=== PATIENT | female | born 1940 | race Two or more races ===

== ENCOUNTER 2024-08-03 08:05 | Inpatient (IN) | payer OTHER ==
[~2024-08-03] VITALS: Ht 170.2 cm; Wt 100.0 kg
[~2024-08-03 08:05] MED LIST: ASPI81CH59 PO; ATOR20TA PO; LOSA-535 PO; POTA-228 PO; TRIA37.586 PO
[2024-08-03] MEDS: ceFAZolin 2 GM/D5W100ml 100 ML IV ONE (10:30)
[2024-08-03] MEDS: TRANEXAMIC ACID 20 ML ONE (11:21)
[2024-08-03] MEDS: ROPIVACAINE 0.5% (5MG/ML) 20ML AMPULE IJ ONE ×2 (11:21→13:13)
[2024-08-03] MEDS ORDERED: oxyCODONE HCL 5MG TAB PO PRN (11:30)
[2024-08-03] MEDS ORDERED: MIDAZOLAM HCL 2MG/2ML 2ml VIAL (1mg/ml) ONE ×2 (11:36→11:37)
[2024-08-03] MEDS ORDERED: fentaNYL CITRATE 100 MCG/2 ML VL ONE (11:36)
[2024-08-03] MEDS ORDERED: PROPOFOL 10 MG/ML 20 ML IV ONE (11:39)
[2024-08-03] MEDS: CEFEPIME 1GM/ 50ML 100 ML IV ONE (11:55)
[2024-08-03] MEDS: VANCOMYCIN HCL 1000 MG VL ONE (13:57)
[2024-08-03] MEDS ORDERED: ONDANSETRON HCL 4 MG/2 ML VIAL IV PRN (14:15)
--- NOTE | 2024-08-03 14:22 | DVHOP2 ---
Operative Report - 2 Report Details Date: 08/03/24 Preop Diagnosis: Right hip degenerative arthritis Postop Diagnosis: Right hip degenerative arthritis Surgeon: Sarah Hallman MD Mover: Milagro WESTON Anesthesiologist: Bridget Anesthesia: Regional Drains: Carola closed wound suction Implant: DonJoy origin stem size 13, 0 neck length, 36 ceramic head, flat polyethylene liner, 50 mm acetabular shell Consent: The patient was informed of the risks and benefits of the procedure. These include but are not limited to complications of anesthesia, postoperative infection, incomplete relief of symptoms, recurrence of symptoms, damage to b lood vessels, nerves and tendons, deep venous thrombosis, pulmonary embolism and possible need for repeat surgery in the future. Complications: None Estimated Blood Loss: 150 cc Fluids: See anesthesia record Findings: Osteophytes particularly at the acetabulum, complete denuded cartilage with eburnated bone, severe tendinosis abductors Indications for Surgery: Right hip degenerative arthritis with severe pain and functional impairment despite nonoperative management Name of Procedure Performed Right total hip arthroplasty Procedure Details Procedure Details: The patient was brought to the operating room and given spinal anesthetic with adequate analgesia obtained. The patient was positioned lateral decubitus with the operative side up, stabilized with hip positioners. Axillary roll applied and lower extremities well-padded. Preop patient received IV Ancef, IV cefepime and IV tranexamic acid. Surgical timeout was performed verifying patient, laterality and procedure. The hip and lower extremity were prepped and draped in sterile fashion. Incision was made over the greater trochanter. Subcutaneous dissection and hemostasis were performed with Bovie and aqua mantis. I identified the fascia which was incised with Bovie and Charnley retractor inserted. I identified the gluteus medius that was split at the junction of its anterior and middle thirds with Bovie then incised off the anterior greater trochanter. I incised the anterior gluteus minimus which was elevated off the capsule. I elevated the reflected head of the rectus. I then performed anterior capsulectomy with Bovie. I extended capsular incision posterior medially and superior laterally. The head was dislocated. Femoral neck cut was made with saw and head removed. Head diameter was calipered on the back table. I adjusted retractors to expose the acetabulum. I sandra underwood removed labral tissue with Bovie. I removed foveal tissue with Bovie, curette and rongeur. I then began reaming sequentially paying attention to inclination and version as I went. I trialed which was stable so acetabular implant was brought into the field and tapped into the acetabulum with good fixation achieved. I then brought up the flat liner which was spun to make sure there was no soft tissue entrapment then tapped in and stability verified. I then brought my attention to the proximal femur. The leg was placed in the sterile bag anteriorly. I cleaned up soft tissue at the greater trochanter shoulder with Bovie. I then used a rongeur to clip the lateral neck. I then used a box osteotome, canal finder and lateralizing rasp. I sequentially broached to size 13. I used a calcar planer to revise femoral neck cut. I trialed with a [0] neck length and [36] head which was stable. Intraoperative AP pelvis x-ray was obtained to verify length, offset and implant size. The hip was dislocated. Neck and head trial removed. I tapped down the stem a bit and again used the calcar planer. Broach was removed. I tapped in the femoral implant with good fixation achieved. I again trialed and decided finally to use the 0 neck length as this was most stable. I cleaned and dried the Ocasio taper and tapped on the femoral head. The hip was again reduced and tested for stability which was good. I irrigated with xperience. I placed 2 grams of vancomycin in the deep and superficial wound. I repaired the minimus and medius to the anterior greater trochanter with #[5] FiberWire in running fashion . I oversewed the repair with 0 Vicryl. I repaired the fascia with #1 Ethibond interrupted [id number]. Deep subcutaneous tissue was closed with 0 Vicryl. Superficial subcutaneous tissue was closed with 2-0 Vicryl. The skin was closed with brad. I then applied the Carola closed wound suction. Patient tolerated the procedure well and was brought to the recovery room in stable condition. Condition Stable Disposition Still a Patient SARAH HALLMAN MD Aug 03, 2024 14:22
[2024-08-03 14:40] VITALS: RESP 12; O2SAT 98
[2024-08-03] MEDS: ONDANSETRON HCL 4 MG/2 ML VIAL ONE (14:55)
--- NOTE | 2024-08-03 14:55 | DVH ---
EXAM: XY PELVIS AP CLINICAL INDICATION: postop TECHNIQUE: XY PELVIS AP Comparison: None FINDINGS/IMPRESSION: Right hip arthroplasty. Surgical skin brad.
[2024-08-03] MEDS ORDERED: ACETAMINOPHEN IV 1000 MG/100ML (10MG/ML) IV PRN (15:00)
[2024-08-03] MEDS ORDERED: HYDROmorphone HCL 2 MG/ML VL/or syr IV PRN (15:00)
[2024-08-03] MEDS: ONDANSETRON HCL 4 MG/2 ML VIAL IV ONE (15:01)
[2024-08-03] MEDS: HYDROCORTISONE SOD SUCC 100 MG/2ML INJ VIAL IV ONE (16:02)
[2024-08-03 17:50] VITALS: O2SAT 97
[2024-08-03] MEDS: SODIUM CHLORIDE 0.9% 1,000 ML IV SCH (18:29)
[2024-08-03] MEDS: KETOROLAC TROMETH 30 MG/ML 1ML VIAL IV SCH (18:32)
[2024-08-03] MEDS: ACETAMINOPHEN 325 MG TAB PO SCH (18:33)
--- NOTE | 2024-08-03 19:06 | DVH ---
CLINICAL INDICATION: postop TECHNIQUE: 2 AP views of the pelvis. XY PELVIS AP Comparison: XY PELVIS AP on DOS: 08/03/24 FINDINGS/IMPRESSION: Right hip arthroplasty in place. No evidence of hardware complication. No acute traumatic fracture or dislocation.
[2024-08-03 19:07] VITALS: BP 128/57; PULSE 83; RESP 16; TEMP 97.3; O2SAT 98
[2024-08-03 20:00] VITALS: PULSE 83; PULSE 88; RESP 20; O2SAT 96
[2024-08-03 21:00] VITALS: BP 127/59; PULSE 88; RESP 20; TEMP 98.8; O2SAT 96
[2024-08-03] MEDS: ceFAZolin 2 GM/D5W50ml 50 ML IV SCH (22:00)
[2024-08-03] MEDS: PREGABALIN 25 MG CAP PO SCH (22:00)
[2024-08-04] VITALS (8 sets, daily range): BP systolic 99–128; BP diastolic 42–59; PULSE 66–91; RESP 16–20; TEMP 97.3–98.8; O2SAT 92–97
[2024-08-04 08:13] LABS: Basophils # (auto) 0 10 ^3/uL (0-0.2); Basophils % (auto) 0.2 % (0.0-2.0); Eosinophils # (auto) 0 10 ^3/uL (0-0.8); Eosinophils % (auto) 0.2 % (0.0-7.0); Hemoglobin 7.6 g/dL (12.2-16.2); Lymphocytes # (auto) 0.6 10 ^3/uL (0.4-5.4); Lymphocytes % (auto) 8.3 % (10.0-50.0); Mean Corpuscular Hgb Conc. 32.5 g/dL (32.0-36.0); Monocytes # (auto) 0.9 10 ^3/uL (0-1.3); Neutrophils # (auto) 5.4 10 ^3/uL (1.6-8.6); Red Cell Distribution Width 15.2 % (11.8-14.3)
[2024-08-04 08:15] LABS: Hematocrit 23.4 % (36.0-46.0); Mean Corpuscular Hemoglobin 27.1 pg (28.0-32.0); Mean Corpuscular Volume 83.4 fL (80.0-100.0); Monocytes % (auto) 12.6 % (0.0-12.0); Neutrophils % (auto) 78.7 % (37.0-80.0); Nucleated Red Blood Cells % 0.1 %; Platelet Count (auto) 279 10^3/uL (140-450); Red Blood Cells 2.81 10^6/uL (4.0-5.20); White Blood Cell 6.9 10^3/uL (4.4-10.8)
[2024-08-04 08:16] LABS: Anion Gap 9 (5-15); Carbon Dioxide 25 mmol/L (20-31); Chloride 106 mmol/L (98-107); Potassium 3.6 mmol/L (3.5-5.1); Sodium 140 mmol/L (136-145)
[2024-08-04 08:17] LABS: Calcium 8.9 mg/dL (8.7-10.4)
[2024-08-04 08:22] LABS: BUN/Creatinine Ratio 21.4 (10.0-20.0); Blood Urea Nitrogen 22 mg/dL (9-23)
[2024-08-04 08:37] LABS: Glucose 112 mg/dL (74-106)
[2024-08-04] MEDS: HYDROCHLOROTHIAZIDE PO SCH (10:00)
[2024-08-04] MEDS: LOSARTAN POTASSIUM 50 MG TAB PO SCH (10:00)
[2024-08-04] MEDS: TRIAMTERENE PO SCH (10:00)
[2024-08-04] MEDS: APIXABAN 2.5 MG TAB PO SCH (10:24)
[2024-08-04] MEDS: POTASSIUM CHL 10 Meq TABLET PO SCH (10:25)
--- NOTE | 2024-08-04 14:07 | DVHPN2 ---
Progress Note - Dictate Date Seen: Aug 04, 2024 Medical Necessity Reason Pt with a Central, PICC or Fol: No Subjective Patient was lying comfortably in bed during my evaluation reports some postoperative hip pain that is somewhat improved with the help of pain medication. Patient reports that she was able to stand up with the help of her walker and physical therapy but was only able to take a few steps next to her bed before needing to sit back down due to the pain. Patient is otherwise feeling well denying any other complaints or concerns during my evaluation. vital signs Vital Sign Date Time Temp Pulse Resp B/P (MAP) Pulse Ox O2 Delivery O2 Flow Rate FiO2 08/04/24 13:00 97.5 83 18 99/59 (72) 93 97.5 08/04/24 08:00 Room Air* 0 21 Total Intake and Output 08/03/24 08/03/24 08/04/24 15:00 23:00 07:00 Intake Total 100 ml 450 ml Balance 100 ml 450 ml medications Current Medications Medications Dose Ordered Sig/Robert Route Start Time Stop Time Status Last Admin Dose Admin Patient Own Medication 1 cap DAILY PO 08/04/24 10:00 Losartan Potassium 100 mg DAILY PO 08/04/24 10:00 Potassium Chloride 10 meq DAILY PO 08/04/24 10:00 08/04/24 10:25 10 MEQ Pregabalin 50 mg BID PO 08/03/24 22:00 08/04/24 10:24 50 MG Apixaban 2.5 mg BID PO 08/04/24 10:00 09/08/24 09:59 08/04/24 10:24 2.5 MG Sodium Chloride 1,000 ml @ 125 mls/hr Q8H IV 08/03/24 11:30 08/04/24 11:30 125 MLS/HR Acetaminophen 650 mg Q6HP PO 08/03/24 18:00 08/04/24 05:13 650 MG Ondansetron HCl 4 mg Q4HP PRN IV 08/03/24 14:15 Oxycodone HCl 5 mg Q4HP PRN PO 08/03/24 11:30 Oxycodone HCl 10 mg Q4HP PRN PO 08/03/24 11:30 objective A&O x4 in no acute distress Hip range of motion grossly limited with pain on movement Carola dressing clean, dry, intact, and maintaining suction No distal edema or calf tenderness to palpation Neurovascularly intact with cap refill less than 2 seconds laboratory and microbiology Laboratory Tests 08/04/24 06:30 Test 08/04/24 06:30 Range/Units Serum Glucose 112 H 74-106 mg/dL Assessment/Plan Continue current management as well as pain control and physical therapy and advised patient to remain weight-bearing as tolerated with the assistance of a walker. Given patient's postoperative hemoglobin level of 7.6 we will keep her another night for further observation and we will obtain new blood work for tomorrow morning for re-evaluation. If hemoglobin is trending upwards may consider patient to be discharged home. Plan discussed with: Patient, Spouse MARIELENA ANTUNEZ Aug 04, 2024 14:06
[2024-08-04] MEDS: oxyCODONE HCL 5MG TAB PO PRN (21:25)
[2024-08-05 01:21] VITALS: BP 131/49; PULSE 94; RESP 17; TEMP 98.8; O2SAT 90
[2024-08-05 05:27] VITALS: BP 112/40; PULSE 100; RESP 17; TEMP 99.4; O2SAT 92
[2024-08-05 08:00] VITALS: PULSE 94; RESP 16; O2SAT 94
[2024-08-05 09:25] LABS: Basophils # (auto) 0 10 ^3/uL (0-0.2); Eosinophils # (auto) 0.1 10 ^3/uL (0-0.8); Lymphocytes # (auto) 0.8 10 ^3/uL (0.4-5.4); White Blood Cell 9.9 10^3/uL (4.4-10.8)
[2024-08-05 09:29] LABS: Basophils % (auto) 0.3 % (0.0-2.0); Eosinophils % (auto) 0.8 % (0.0-7.0); Hematocrit 24.9 % (36.0-46.0); Mean Corpuscular Hgb Conc. 32.1 g/dL (32.0-36.0); Mean Corpuscular Volume 83.9 fL (80.0-100.0); Monocytes % (auto) 9.7 % (0.0-12.0); Neutrophils % (auto) 81.2 % (37.0-80.0); Platelet Count (auto) 307 10^3/uL (140-450); Red Blood Cells 2.96 10^6/uL (4.0-5.20); Red Cell Distribution Width 15.6 % (11.8-14.3)
[2024-08-05 13:00] VITALS: BP 127/60; PULSE 86; RESP 19; TEMP 99; O2SAT 97
--- NOTE | 2024-08-05 13:27 | DVHDS2 ---
Discharge Summary Date of Admission Aug 03, 2024 at 11:28 Date of Discharge: Aug 05, 2024 Labs/Diagnostic Data: Laboratory Results Test 08/05/24 08:55 08/04/24 06:30 White Blood Count 9.9 10^3/uL (4.4-10.8) Red Blood Count 2.96 10^6/uL (4.0-5.20) Hemoglobin 8.0 g/dL (12.2-16.2) Hematocrit 24.9 % (36.0-46.0) Mean Corpuscular Volume 83.9 fL (80.0-100.0) Mean Corpuscular Hemoglobin 27.0 pg (28.0-32.0) Mean Corpuscular Hemoglobin Concent 32.1 g/dL (32.0-36.0) Red Cell Distribution Width 15.6 % (11.8-14.3) Platelet Count 307 10^3/uL (140-450) Mean Platelet Volume 7.3 fL (6.9-10.8) Neutrophils (%) (Auto) 81.2 % (37.0-80.0) Lymphocytes (%) (Auto) 8.0 % (10.0-50.0) Monocytes (%) (Auto) 9.7 % (0.0-12.0) Eosinophils (%) (Auto) 0.8 % (0.0-7.0) Basophils (%) (Auto) 0.3 % (0.0-2.0) Neutrophils # (Auto) 8.0 10 ^3/uL (1.6-8.6) Lymphocytes # (Auto) 0.8 10 ^3/uL (0.4-5.4) Monocytes # (Auto) 1.0 10 ^3/uL (0-1.3) Eosinophils # (Auto) 0.1 10 ^3/uL (0-0.8) Basophils # (Auto) 0 10 ^3/uL (0-0.2) Nucleated Red Blood Cells 0.0 % Sodium Level 140 mmol/L (136-145) Potassium Level 3.6 mmol/L (3.5-5.1) Chloride Level 106 mmol/L (98-107) Carbon Dioxide Level 25 mmol/L (20-31) Anion Gap 9 (5-15) Blood Urea Nitrogen 22 mg/dL (9-23) Creatinine 1.03 mg/dL (0.550-1.02) Glomerular Filtration Rate Calc 54 mL/min (>90) BUN/Creatinine Ratio 21.4 (10.0-20.0) Serum Glucose 112 mg/dL (74-106) Calcium Level 8.9 mg/dL (8.7-10.4) Other Laboratory Tests 08/05/24 08:55 08/04/24 06:30 Brief Hx & Hospital Course: Patient was brought to the hospital on Saturday to undergo a right total hip arthroplasty. She tolerated the procedure well without complications and was kept overnight for postoperative observation. Postop day one patient reported some postoperative hip pain that was being well controlled with the help of pain medication but still limited in her ambulation was only able to take a few steps near bedside with physical therapy. Her hemoglobin was about 7.6 postoperatively and we decided to observe given her hemoglobin started at the low 9s before the procedure and on postop day two improved to eight. Patient expressed her wishes to avoid a rehab facility or [facility] facility at all caused some instead would like to go home. We will plan for the patient to go home after walking with physical therapy. Condition at Discharge: Stable Final Diagnosis/Problems List Right hip degenerative arthritis Discharge Disposition: Home (May go home after physical therapy today) Discharge Instruct/Medications Diet: Regular Activity: See Comment Activity comment: Advised patient to remain weight-bearing as tolerated with the assistance of a walker Follow Up/Referral: I instructed the patient to follow up with our office in 10-14 days for her 1st postoperative evaluation Medications: Rx sent via our outpatient Discharge Statement: "Patient was advised to return to the ER or call 911 if any headaches, dizziness, shortness of breath, chest pain, abdominal pain, bleeding, fevers, or worsening of medical condition. Patient was counseled about treatment plan, medications, possible side effects, patientverbalized understanding. All questions were answered to the best of my ability. This discharge took greater then 30 minutes in planning, reviewing documentation, counseling the patient, and discussing with other team members." ASSESSMENT ASSESSMENT Assessment Right hip degenerative arthritis MARIELENA ANTUNEZ Aug 05, 2024 13:27
--- NOTE | 2024-08-05 13:29 | DVHPN2 ---
Progress Note - Dictate Date Seen: Aug 05, 2024 Medical Necessity Reason Pt with a Central, PICC or Fol: No Subjective Patient was lying comfortably in bed during my evaluation reports some postoperative hip pain that is improved with the help of pain medication. Patient reports that she was able to stand up with the help of her walker and physical therapy and was able to take a few steps right outside of her room before having to go back. Patient is otherwise feeling well denying any other complaints or concerns during my evaluation. vital signs Vital Sign Date Time Temp Pulse Resp B/P (MAP) Pulse Ox O2 Delivery O2 Flow Rate FiO2 08/05/24 10:00 129/48 08/05/24 08:00 94 16 94 Room Air* 0 21 08/05/24 05:27 99.4 99.4 Total Intake and Output 08/04/24 08/04/24 08/05/24 15:00 23:00 07:00 Intake Total 2200 ml 1400 ml Balance 2200 ml 1400 ml medications Current Medications Medications Dose Ordered Sig/Robert Route Start Time Stop Time Status Last Admin Dose Admin Patient Own Medication 1 cap DAILY PO 08/04/24 10:00 Losartan Potassium 100 mg DAILY PO 08/04/24 10:00 Potassium Chloride 10 meq DAILY PO 08/04/24 10:00 08/05/24 10:18 10 MEQ Pregabalin 50 mg BID PO 08/03/24 22:00 08/05/24 10:17 50 MG Apixaban 2.5 mg BID PO 08/04/24 10:00 09/08/24 09:59 08/05/24 10:17 2.5 MG Sodium Chloride 1,000 ml @ 125 mls/hr Q8H IV 08/03/24 11:30 08/05/24 06:32 125 MLS/HR Acetaminophen 650 mg Q6HP PO 08/03/24 18:00 08/05/24 06:31 650 MG Ondansetron HCl 4 mg Q4HP PRN IV 08/03/24 14:15 Oxycodone HCl 5 mg Q4HP PRN PO 08/03/24 11:30 08/05/24 02:11 5 MG Oxycodone HCl 10 mg Q4HP PRN PO 08/03/24 11:30 objective A&O x4 in no acute distress Hip range of motion grossly limited with pain on movement Carola dressing clean, dry, intact, and maintaining suction No distal edema or calf tenderness to palpation Neurovascularly intact with cap refill less than 2 seconds laboratory and microbiology Laboratory Tests 08/05/24 08:55 08/04/24 06:30 Test 08/04/24 06:30 Range/Units Serum Glucose 112 H 74-106 mg/dL Assessment/Plan Patient to be discharged home after physical therapy today as patient declined any rehab facility or care home facility as she has had bad experiences in the past and instead would like to go home as she reports she has family in help at. I advised the patient to remain weight-bearing as tolerated with the assistance of a walker and to maintain her dressings clean, dry, intact, and maintaining suction to call our office if she has any questions or concerns. I also instructed the patient to follow up with our office in 10-14 days for her 1st postoperative evaluation. Rx sent via our outpatient EMR system. She understood and agreed. Plan discussed with: Patient MARIELENA ANTUNEZ Aug 05, 2024 13:29
[2024-08-05 16:31] VITALS: BP 127/60; PULSE 86; RESP 19; TEMP 99; O2SAT 97
[2024-08-05 17:00] VITALS: BP 122/70; PULSE 73; RESP 16; TEMP 98.9; O2SAT 92
== END 2024-08-05 18:01 | disposition home health service (06) | DRG 470 ==
LOC: SUR 08:05 → OVERFLOW 11:28 → TELE 14:43 → TELE-CENTR 17:35
PROVIDERS: ADMIT Orthopaedic Surgery; ATTEND Anesthesiology
PROC: 0SR904Z Replacement of Right Hip Joint with Ceramic on Polyethylene Synthetic Substitute, Open Approach (ICD-10-PCS; principal; 2024-08-03 11:57)
DX: M16.11 Unilateral primary osteoarthritis, right hip (principal); Z79.899 Other long term (current) drug therapy
CPT/HCPCS: 36415; 72170; 80048; 85025; 86850; 86900; 86901; 97116; 97163; 97530; G0378; J1885; J2250; J2405; J2704

== ENCOUNTER 2025-06-03 11:53 | Inpatient (IN) | payer OTHER ==
[~2025-06-03] VITALS: Ht 170.2 cm; Wt 107.3 kg
--- NOTE | 2025-06-03 12:11 | ED.PDOC ---
HPI (NEURO) HPI Comments 84 y/o F, accompanied by son, with PMHx of HTN and HLD presents to the ED for CC of generalized weakness. Son reports, patient has been experiencing symptoms of generalized weakness with associated dizziness, disorientation, and changes in speech following starting a new weight loss supplement x5days ago. Per son, patient stopped taking the supplement x3days ago and symptoms have improved slightly however, he is concerned she may have had a CVA because she is still having difficult finding he words and complaining about feeling "foggy". At this time patient is answering questions appropriately, speech is clear, and no facial droop is noted. No other symptoms or modifying factors are present at this time. She denies any fever, cough, chest pain, falls, weakness, numbness, vision changes, N/V/D, head injury. Chief Complaint: General Weakness Time Seen by MD: 12:00 Reviewed Notes: Nurses Notes, Medications, Allergies Information Source: Patient Mode of Arrival: Wheelchair Severity: Moderate Timing: Days Duration: Since onset Prehospital treatment: None Weakness Location: Generalized Onset: At rest Circumstances: Other (following new Rx) Symptoms: Weakness Modifying factors: Nothing Associated Signs and Symptoms: Weakness Past Medical History PAST MEDICAL HISTORY: High Lipids, HTN Surgical History: Denies all surgeries BOOT MAKER History: Denies all BOOT MAKER Hx Family History Family History: Unknown Social History Smoker: Non-Smoker Alcohol: Denies ETOH Use Drugs: Denies Drug Use Lives In: Home Constitutional: denies: chills, diaphoresis, fatigue, fever, malaise, sweats, weakness, others EENTM: denies: blurred vision, double vision, ear bleeding, ear discharge, ear drainage, ear pain, ear ringing, eye pain, eye redness, hearing loss, mouth pain, mouth swelling, nasal discharge, nose bleeding, nose congestion, nose pain, photophobia, tearing, throat pain, throat swelling, voice changes, others Respiratory: denies: cough, hemoptysis, orthopnea, SOB at rest, shortness of breath, SOB with excertion, stridor, wheezing, others Cardiovascular: denies: chest pain, dizzy spells, diaphoresis, Dyspnea on exertion, edema, irregular heart beat, left arm pain, lightheadedness, palpitations, PND, syncope, others Gastrointestinal: denies: abdomen distended, abdominal pain, blood streaked bowels, constipated, diarrhea, dysphagia, difficulty swallowing, hematemesis, melena, nausea, poor appetite, poor fluid intake, rectal bleeding, rectal pain, vomiting, others Genitourinary: denies: abnormal vagina bleeding, burning, dyspareunia, dysuria, flank pain, frequency, hematuria, incontinence, pain, , vagina discharge, urgency, others Neurological: reports: dizziness, speech problems, others (disorientation); denies: fainting, headache, left sided numbness, left sided weakness, numbness, paresthesia, pre-existing deficit, right sided numbness, right sided weakness, seizure, tingling, tremors, weakness Musculoskeletal: denies: back pain, gout, joint pain, joint swelling, muscle pain, muscle stiffness, neck pain, others Integumetry: denies: bruises, change in color, change in hair/nails, dryness, laceration, lesions, lumps, rash, wounds, others Allergic/Immunocompromised: denies: Difficulty Healing, Frequent Infections, Hives, Itching, others Hematologic/Lymphatic: denies: anemia, blood clots, easy bleeding, easy bruising, swollen glands, others Endocrine: denies: excessive hunger, excessive sweating, excessive thirst, excessive urination, flushing, intolerance to cold, intolerance to heat, unexplained weight gain, unexplained weight loss, others Psychiatric: denies: anxiety, bipolar disorder, depression, hopeless, panic disorder, schizophrenia, sleepless, suicidal, others All Other Systems: Reviewed and Negative Physical Exam General Appearance: No Apparent Distress, Normal HEENT: Normal ENT Inspection, Pharynx Normal Neck: Full Range of Motion, Non-Tender, Normal, Normal Inspection Respiratory: Chest Non-Tender, Lungs Clear, No Accessory Muscle Use, No Respiratory Distress, Normal Breath Sounds Cardiovascular: No Edema, No Murmur, No Gallop, Normal Peripheral Pulses, Regular Rate/Rhythm Breast Exam: Deferred Gastrointestinal: No Organomegaly, Non Tender, No Pulsatile Mass, Normal Bowel Sounds, Soft Genitalia: Deferred Pelvic: Deferred Rectal: Deferred Extremities: No calf tenderness, Normal capillary refill, Normal inspection, Normal range of motion, Non-tender, No pedal edema Musculoskeletal : Apperance: Normal Neurologic: Alert, retail associate manager bilingual II-XII nml as Tested, No Motor Deficits, Normal Affect, Normal Mood, No Sensory Deficits Cerebellar Function: Normal Reflexes: Normal Skin: Dry, Normal Color, Warm Lymphatic: No Adenopathy Was a procedure done? Was a procedure done?: No Differential Diagnosis (SZ) CVA: Hypoglycemia General Weakness: Anemia, CVA, Dehydration, Dysrhythmia, Electrolyte imbalance, Hypoglycemia, Hypotension, Renal failure, TIA X-Ray, Labs, Meds, VS Vital Signs Date Time Temp Pulse Resp B/P (MAP) Pulse Ox O2 Delivery O2 Flow Rate FiO2 06/03/25 11:57 97.6 93 20 136/92 97 97.6 Lab Test 06/03/25 14:59 06/03/25 13:33 Range/Units Troponin I High Sensitivity Pending 7 </=34 ng/L White Blood Count 10.7 4.4-10.8 10^3/uL Red Blood Count 4.81 4.0-5.20 10^6/uL Hemoglobin 15.3 12.2-16.2 g/dL Hematocrit 45.1 36.0-46.0 % Mean Corpuscular Volume 93.9 80.0-100.0 fL Mean Corpuscular Hemoglobin 31.8 28.0-32.0 pg Mean Corpuscular Hemoglobin Concent 33.9 32.0-36.0 g/dL Red Cell Distribution Width 13.2 11.8-14.3 % Platelet Count 264 140-450 10^3/uL Mean Platelet Volume 7.6 6.9-10.8 fL Neutrophils (%) (Auto) 85.0 H 37.0-80.0 % Lymphocytes (%) (Auto) 5.2 L 10.0-50.0 % Monocytes (%) (Auto) 9.1 0.0-12.0 % Eosinophils (%) (Auto) 0.5 0.0-7.0 % Basophils (%) (Auto) 0.2 0.0-2.0 % Neutrophils # (Auto) 9.1 H 1.6-8.6 10 ^3/uL Lymphocytes # (Auto) 0.6 0.4-5.4 10 ^3/uL Monocytes # (Auto) 1.0 0-1.3 10 ^3/uL Eosinophils # (Auto) 0.1 0-0.8 10 ^3/uL Basophils # (Auto) 0 0-0.2 10 ^3/uL Nucleated Red Blood Cells 0.1 % Sodium Level 134 L 136-145 mmol/L Potassium Level 4.4 3.5-5.1 mmol/L Chloride Level 97 L 98-107 mmol/L Carbon Dioxide Level 27 20-31 mmol/L Anion Gap 10 5-15 Blood Urea Nitrogen 19 9-23 mg/dL Creatinine 0.85 0.550-1.02 mg/dL Glomerular Filtration Rate Calc 68 >90 mL/min BUN/Creatinine Ratio 22.4 H 10.0-20.0 Serum Glucose 94 74-106 mg/dL Calcium Level 9.3 8.7-10.4 mg/dL [place] [address] Ph: [phone] DIAGNOSTIC IMAGING Diagnostic Imaging Report : [id number] Signed PATIENT: ZAIRA LORENZO ACCT: [id number] UNIT: [id number] : 1940 LOC: ER ROOM / BED: / AGE / SEX: 84 / F ADM STATUS: REG ER SERVICE 1201 ORDERING PHYSICIAN: EVONNE FLOOD MD PROCEDURE(s): CXRP - CHEST PORTABLE REASON: AMS ORDER NUMBER(s): [id number], ACCESSION NUMBER(s): [id number] EXAM: XY CHEST PORTABLE Indication: AMS Technique: Single frontal view of the chest was obtained Comparison: CT CHEST WO on DOS: 06/29/24, CR CHEST 2 VIEW on DOS: 06/01/24 FINDINGS: Lines and Tubes: None this Lungs: Nodular opacity in the left lower lung measuring 2.4 cm. Pleura: No effusion. No pneumothorax. Cardiomediastinal contours: Unremarkable. Moderate hiatal hernia. At herosclerotic vascular calcifications of the thoracic aorta are noted. Bones: No acute osseous abnormality. IMPRESSION: Nodular opacity in the left lower lung measuring 2.4 cm. Recommend further evaluation with CT chest. Moderate hiatal hernia. ATED BY: NICKY WRIGHT MD DICTATED DATE/TIME: 06/03/25 1300 SIGNED BY: NICKY WRIGHT MD SIGNED DATE/TIME: 06/03/25 1869 CC: [place] [address] Ph: [phone] DIAGNOSTIC IMAGING Diagnostic Imaging Report : [id number] Signed PATIENT: ZAIRA LORENZO ACCT: [id number] UNIT: [id number] : 1940 LOC: ER ROOM / BED: / AGE / SEX: 84 / F ADM STATUS: REG ER SERVICE 1209 ORDERING PHYSICIAN: EVONNE FLOOD MD PROCEDURE(s): HWOCT - HEAD WITHOUT CONTRAST REASON: AMS ORDER NUMBER(s): [id number], ACCESSION NUMBER(s): [id number] EXAM: CT HEAD WITHOUT CONTRAST INDICATION: AMS TECHNIQUE: CT of the head without intravenous contrast. Radiation Dose : 1. Head: CT Dose: CTDI volume is 56.67 mGy. Dose-length product is 1116.74 mGy*cm The dose indicators for CT are the volume Computed Tomography (CT) Dose Index (CTDIvol) and the Dose Length Product (DLP), and are measured in units of mGy and mGy-cm, respectively. These indicators are not patient dose, but values generated from the CT scanner acquisition factors. The report includes radiation exposure data for exposures received during this examination. COMPARISON: None FINDINGS: There is no evidence of acute intracranial hemorrhage, extra-axial collection, mass effect, midline shift, herniation or hydrocephalus. The ventricles, sulci and cisterns are age appropriate. The newell-white differentiation is intact. Patchy periventricular and subcortical white matter hypoattenuation is nonspecific but may be related to small vessel ischemic disease. The visualized paranasal sinuses and mastoid air cells are clear. The surrounding soft tissues and osseous structures are unremarkable. IMPRESSION: No acute intracranial abnormality. Radiation optimization: All CT scans at this facility use at least one of these dose optimization techniques: automated exposure control mA and/or kV adjustment per patient size (includes targeted exams where dose is matched to clinical indication) or iterative reconstruction. ATED BY: PETER RODRIGUEZ MD DICTATED DATE/TIME: 06/03/251243 SIGNED BY: PETER RODRIGUEZ MD SIGNED DATE/TIME: 06/03/251243 CC: X-Ray, Labs, Meds, VS Comment Patient with history of hypertension, hyperlipidemia, presents with altered me ntal status, last known well 5 days ago. Chest x-ray to evaluate for evidence of pneumonia, pneumothorax, CHF EKG and troponin to evaluate for evidence of arrhythmia, ACS, AMI Lab work (CBC, BMP) to evaluate for evidence of severe anemia, electrolyte ab normality including hypokalemia, hyperkalemia, hypernatremia, hyponatremia, hyperglycemia, hypoglycemia, etc. CT head to evaluate for intracranial hemorrhage, large mass, acute infarct, fracture Urinalysis to evaluate for hematuria or infection Re-evaluate Social determinant surveillance affecting care: Social determinants of health that will affect the patient's care: Poor health literacy (additional time provided an explanation) Poor access to outpatient care/followup (provided outpatient resources) Time of 1ST Reevaluation: 12:30 Reevaluation 1ST: Unchanged Patient Education/Counseling: Diagnosis, Treatment Family Education/Counseling: Diagnosis, Treatment Departure 1 Departure Time of Disposition: 15:28 (On reassessment, patient's labs and imaging unremarkable. We will admit to hospital for further stroke evaluation as patient is still having difficulty with some word finding. Patient and son agreeable with plan) Impression: Primary Impression: Word finding difficulty Additional Impression: Generalized weakness Disposition: ADMITTED INPATIENT Admit to: Med Surg Condition: Guarded Critical Care Note Critical Care Time?: No Stability Stability form required: No Heart Score Heart Score: Heart Score Response (Comments) Value History N/A 0 EKG N/A 0 Age N/A 0 Risk Factors N/A 0 Troponin N/A 0 Total 0 I personally scribed for EVONNE FLOOD MD ([email or web address]) on 06/03/25 at 12:11. Electronically submitted by Melany Escalante ([email or web address] I personally scribed for EVONNE FLOOD MD ([email or web address]) on 06/03/25 at 12:19. Electronically submitted by Melany Escalante ([email or web address]). I personally scribed for EVONNE FLOOD MD ([email or web address]) on 06/03/25 at 13:30. Electronically submitted by Melany Escalante ([email or web address]). I personally scribed for EVONNE FLOOD MD ([email or web address]) on 06/03/25 at 13:31. Electronically submitted by Melany Escalante ([email or web address]). EVONNE FLOOD MD Jun 03, 2025 12:11
--- NOTE | 2025-06-03 12:46 | DVH ---
EXAM: CT HEAD WITHOUT CONTRAST INDICATION: AMS TECHNIQUE: CT of the head without intravenous contrast. Radiation Dose : 1. Head: CT Dose: CTDI volume is 56.67 mGy. Dose-length product is 1116.74 mGy*cm The dose indicators for CT are the volume Computed Tomography (CT) Dose Index (CTDIvol) and the Dose Length Product (DLP), and are measured in units of mGy and mGy-cm, respectively. These indicators are not patient dose, but values generated from the CT scanner acquisition factors. The report includes radiation exposure data for exposures received during this examination. COMPARISON: None FINDINGS: There is no evidence of acute intracranial hemorrhage, extra-axial collection, mass effect, midline shift, herniation or hydrocephalus. The ventricles, sulci and cisterns are age appropriate. The newell-white differentiation is intact. Patchy periventricular and subcortical white matter hypoattenuation is nonspecific but may be related to small vessel ischemic disease. The visualized paranasal sinuses and mastoid air cells are clear. The surrounding soft tissues and osseous structures are unremarkable. IMPRESSION: No acute intracranial abnormality. Radiation optimization: All CT scans at this facility use at least one of these dose optimization techniques: automated exposure control mA and/or kV adjustment per patient size (includes targeted exams where dose is matched to clinical indication) or iterative reconstruction.
--- NOTE | 2025-06-03 13:10 | DVH ---
EXAM: XY CHEST PORTABLE Indication: AMS Technique: Single frontal view of the chest was obtained Comparison: CT CHEST WO on DOS: 06/29/24, CR CHEST 2 VIEW on DOS: 06/01/24 FINDINGS: Lines and Tubes: None this Lungs: Nodular opacity in the left lower lung measuring 2.4 cm. Pleura: No effusion. No pneumothorax. Cardiomediastinal contours: Unremarkable. Moderate hiatal hernia. Atherosclerotic vascular calcifications of the thoracic aorta are noted. Bones: No acute osseous abnormality. IMPRESSION: Nodular opacity in the left lower lung measuring 2.4 cm. Recommend further evaluation with CT chest. Moderate hiatal hernia.
[2025-06-03 13:53] LABS: Hematocrit 45.1 % (36.0-46.0); Hemoglobin 15.3 g/dL (12.2-16.2); Mean Corpuscular Hemoglobin 31.8 pg (28.0-32.0); Mean Corpuscular Volume 93.9 fL (80.0-100.0); Nucleated Red Blood Cells % 0.1 %
[2025-06-03 14:06] LABS: Potassium 4.4 mmol/L (3.5-5.1)
[2025-06-03 14:07] LABS: Anion Gap 10 (5-15); Calcium 9.3 mg/dL (8.7-10.4); Carbon Dioxide 27 mmol/L (20-31)
[2025-06-03 14:08] LABS: Chloride 97 mmol/L (98-107); Sodium 134 mmol/L (136-145)
[2025-06-03 14:12] LABS: BUN/Creatinine Ratio 22.4 (10.0-20.0); Blood Urea Nitrogen 19 mg/dL (9-23); Glucose 94 mg/dL (74-106)
[2025-06-03 19:56] VITALS: PULSE 68; RESP 18; O2SAT 96
[2025-06-03] MEDS: ENOXAPARIN SOD 40 MG/0.4 ML SYRINGE SC SCH (21:00)
[2025-06-03] MEDS ORDERED: ONDANSETRON HCL 4 MG/2 ML VIAL IV PRN (21:00)
[2025-06-03] MEDS ORDERED: ACETAMINOPHEN 325 MG TAB PO PRN (21:00)
--- NOTE | 2025-06-03 21:56 | DVH ---
CLINICAL INDICATION: fall TECHNIQUE: 2 radiographic views of the left humerus were obtained. Comparison: None FINDINGS/IMPRESSION: There is no evidence of acute fracture or dislocation. The visualized joint space is well maintained. The alignment is anatomical.
[2025-06-03 22:05] LABS: Urine Protein, UAD Negative (Negative); Urine WBC Clumps PRESENT /hpf (None Seen)
--- NOTE | 2025-06-03 22:06 | DVHHPRES ---
History of Present Illness Resident Creating Document: ALEJANDRA ALTAMIRANO RESIDENT History of Present Illness 84-year-old female with a past medical history of hypertension, hyperlipidemia, tuberculosis at age 1, surgical history of TAVR with pacemaker placement, right total hip arthroplasty has come in with the chief complaints of generalized weakness, forgetfulness, confusion and brain fog for the past 5 days. Patient reports that she started a new weight loss supplement called 'lipomax' 5 days ago, which she ordered online, after which the symptoms began and when she stopped it 2 days ago, her symptoms got better. She elaborates that she would forget what she was talking about mid conversation and would feel disoriented, noticed by her children who urged her to visit the ER believing it was a CVA event. On inquiry, patient denies any dizziness, change in speech/slurring, weakness in 1 side of the body, facial drooping, loss of consciousness, palpitations, chest pain, shortness of breath, nausea, vomiting or GERD symptoms. On admission vitals are stable temp 97.6, HR 68, RR 18, BP 133/98 mmHg, SpO2 96% in room air. Head CT shows no acute intracranial abnormality, chest x-ray shows nodular obesity in the left lower lung, 2.4 cm And moderate hiatal hernia. we are admitting the patient for further workup and management PMH: As stated above PSH: As stated above Family history: Reviewed, noncontributory to the management of this case Social history: Patient denies ever smoking or abusing illicit drugs, drinks 1 glass of wine occasionally allergies: Sulfa drugs, codeine, tetanus shots PCP: Dr. Harry Bowers( new PCP, patient has not visited yet), old PCP was Dr. Orozco code status: Modified code, okay to all measures except shock Review of Systems Constitutional: Yes: Weakness, Other (confusion); No: Fever, Chills, Sweats, Malaise Eyes: No: Pain, Vision change, Conjunctivae inflammation, Eyelid inflammation, Other, Redness ENT: No: Ear pain, Ear discharge, Nose pain, Nose discharge, Nose congestion, Mouth pain, Mouth swelling, Throat pain, Throat swelling, Other Respiratory: No: Cough, Dry, Shortness of breath, SOB with excertion, Wheezing, Hemoptysis, Pleuritic Pain, Sputum, Wheezing, Other Cardiovascular: No: Chest Pain, Palpitations, Orthopnea, Paroxysmal Noc. Dyspnea, Edema, Lt Headedness, Other Gastrointestinal: No: Nausea, Vomiting, Abdominal Pain, Diarrhea, Constipation, Melena, Hematochezia, Other Genitourinary: No Dysuria, No Frequency, No Incontinence, No Hematuria, No Retention, No Other Musculoskeletal: No: other, neck pain, shoulder pain, arm pain, back pain, hand pain, leg pain, foot pain Skin: No: Rash, Lesions, Jaundice, Bruising, Other Neurological: No: Weakness, Numbness, Incoordination, Change in speech, Confusion, Seizures, Other Allergies: Coded Allergies: Sulfa Antibiotics (Unverified Allergy, Mild, rash, 07/31/24) Tetanus Immune Globulin (Unverified Allergy, Mild, rash, 07/31/24) Codeine (Unverified Adverse Reaction, Severe, ALOC, 07/31/24) Medications Current Medications Medications Dose Ordered Sig/Robert Route Start Time Stop Time Status Last Admin Dose Admin Ondansetron HCl 4 mg Q4HP PRN IV 06/03/25 21:00 UNV Acetaminophen 650 mg Q6HP PRN PO 06/03/25 21:00 UNV Enoxaparin Sodium 40 mg DAILY SC 06/03/25 21:00 UNV Atorvastatin Calcium 20 mg DAILY PO 06/04/25 10:00 UNV Patient Own Medication 81 mg DAILY PO 06/04/25 10:00 UNV Patient Own Medication 1 cap DAILY PO 06/04/25 10:00 UNV Patient Own Medication 100 mg DAILY PO 06/04/25 10:00 UNV Exam Vital Signs Vital Signs Date Time Temp Pulse Resp B/P (MAP) Pulse Ox O2 Delivery O2 Flow Rate FiO2 06/03/25 19:56 68 18 96 Room Air* 0 21 06/03/25 19:08 98.3 133/98 (110) 98.3 Exam General Appearance: Alert, Oriented X3, Cooperative, Not in acute distress HEENT: Atraumatic, Mucous membranes moist/pink Respiratory: Clear to auscultation, Normal air movement, No added sounds Cardiovascular: Regular rate, Normal S1, Normal S2, No murmurs Abdominal: Active bowel sounds, Soft, no distention, no tenderness Extremities: No edema, Normal pulses, No tenderness/swelling Skin: No Significant rash, except past surgical scars Neuro: Normal speech, sensorimotor deficits none Psych/Mental Status: Mental status NL, Mood NL Labs/Xrays Labs Test 06/03/25 21:15 06/03/25 17:17 06/03/25 13:33 Range/Units Troponin I High Sensitivity 7 </=34 ng/L White Blood Count 10.7 4.4-10.8 10^3/uL Red Blood Count 4.81 4.0-5.20 10^6/uL Hemoglobin 15.3 12.2-16.2 g/dL Hematocrit 45.1 36.0-46.0 % Mean Corpuscular Volume 93.9 80.0-100.0 fL Mean Corpuscular Hemoglobin 31.8 28.0-32.0 pg Mean Corpuscular Hemoglobin Concent 33.9 32.0-36.0 g/dL Red Cell Distribution Width 13.2 11.8-14.3 % Platelet Count 264 140-450 10^3/uL Mean Platelet Volume 7.6 6.9-10.8 fL Neutrophils (%) (Auto) 85.0 H 37.0-80.0 % Lymphocytes (%) (Auto) 5.2 L 10.0-50.0 % Monocytes (%) (Auto) 9.1 0.0-12.0 % Eosinophils (%) (Auto) 0.5 0.0-7.0 % Basophils (%) (Auto) 0.2 0.0-2.0 % Neutrophils # (Auto) 9.1 H 1.6-8.6 10 ^3/uL Lymphocytes # (Auto) 0.6 0.4-5.4 10 ^3/uL Monocytes # (Auto) 1.0 0-1.3 10 ^3/uL Eosinophils # (Auto) 0.1 0-0.8 10 ^3/uL Basophils # (Auto) 0 0-0.2 10 ^3/uL Nucleated Red Blood Cells 0.1 % Sodium Level 134 L 136-145 mmol/L Potassium Level 4.4 3.5-5.1 mmol/L Chloride Level 97 L 98-107 mmol/L Carbon Dioxide Level 27 20-31 mmol/L Anion Gap 10 5-15 Blood Urea Nitrogen 19 9-23 mg/dL Creatinine 0.85 0.550-1.02 mg/dL Glomerular Filtration Rate Calc 68 >90 mL/min BUN/Creatinine Ratio 22.4 H 10.0-20.0 Serum Glucose 94 74-106 mg/dL Calcium Level 9.3 8.7-10.4 mg/dL SEPSIS Sepsis Screen Date sepsis recognized/suspect: Jun 03, 2025 Time Sepsis recognized/suspect: 1909 Recent Procedure: No On Antibiotic Therapy: No Respiratory Rate >20: No Heart Rate >90: No Temp<36 C (96.8 F) or >38.3 C: No SBP <90 or MAP <65 mmHG: No New Acute Mental Status Change: No Is the patient on CPAP, BIPAP,: No Physician Orders L Humerus Xray (06/03/25 21:20) Admit (06/03/25 20:50) Code Status (06/03/25 20:50) Ondansetron Hcl (Zofran) (06/03/25 21:00) Complete Blood Count (06/04/25 04:00) Comprehensive Metabolic Panel (06/04/25 04:00) Cardiac Diet-2gna,Lofat,Lochol (06/04/25 Breakfast) Echo 2d Mode Cardiac Dop (06/03/25 20:50) Carotid Duplx W Color Dop (06/03/25 20:50) Condition: Unstable (06/03/25 20:50) Acetaminophen Tablet (Tylenol Tablet) (06/03/25 21:00) Lovenox 40mg (06/03/25 21:00) Notify Of Changes From Base (06/03/25 20:50) Unloading Checker For 24 Hours (06/03/25 20:50) Magnesium (06/03/25 20:50) Thyroid Stimulating Hormone (06/03/25 20:50) Drug Screen (06/03/25 20:50) Atorvastatin (Lipitor) (06/04/25 10:00) (Nf) Aspirin (Aspirin Low Dose) (06/04/25 10:00) (Nf) Hydrochlorothiazide W/Triamter (Tri (06/04/25 10:00) (Nf) Losartan Potassium (06/04/25 10:00) Hepatic Panel (06/03/25 20:50) Chest Without Contrast (06/03/25 20:50) Ammonia (06/03/25 20:50) Covid19 Antigen Catherine (06/03/25 ) Rapid Influenza A&B (06/03/25 20:50) Vital Signs Date Time Temp Pulse Resp B/P (MAP) Pulse Ox O2 Delivery O2 Flow Rate FiO2 06/03/25 19:56 68 18 96 Room Air* 0 21 06/03/25 19:08 68 20 96 Room Air 06/03/25 19:08 98.3 68 20 133/98 (110) 96 98.3 06/03/25 15:44 97.2 65 16 164/84 (110) 95 97.2 Laboratory Tests Test 06/03/25 13:33 White Blood Count 10.7 10^3/uL (4.4-10.8) Assessment/Plan Assessment/Plan #Acute metabolic/ toxic encephalopathy #Acute cystitis with hematuria, causing above -Urine shows blood 1+, nitrate 2+, leukocyte esterase 3+, WBC to 89, bacteria many, squamous epithelial cells moderate, RBC 8 -urine culture -IV ceftriaxone 1g IV daily -IV fluid NS 0.9% -Ammonia <10 -UDS negative -Magnesium 1.9 -COVID/flu- negative -TSH 1.54 -Carotid Doppler -Ekg -Echo -CT head shows no acute intracranial abnormalities, patchy periventricular and subcortical white matter hypoattenuation which is nonspecific may relate to small-vessel disease -acetaminophen 650 mg p.o. q.6 PRN #Left lower lung nodule -chest x-ray shows Nodular opacity in the left lower lung measuring 2.4 cm. Recommend further evaluation with CT chest. -chest CT without contrast #Moderate hiatal hernia -as seen in CT scan -Protonix 40 mg per orally daily -outpatient follow up #Hypertensive heart disease with diastolic dysfunction #Hyperlipidemia #S/P TAPVR and pacemaker -continue home medication losartan 100 mg p.o. daily scheduled -continue home medication aspirin 81 mg p.o. daily scheduled -continue home medication atorvastatin 20 mg p.o. daily scheduled -continue medication hydrochlorothiazide one capsule p.o. daily scheduled GI prophylaxis: Protonix 40 mg per orally daily DVT prophylaxis: Lovenox 40 mg subcutaneous daily Diet: cardiac diet Goals of care discussed with the patient for more than 27 minutes: Full code status Case discussed with Dr. Ramachandran, patient Plan discussed with: Patient My Orders Orders - ALEJANDRA ALTAMIRANO RESIDENT Procedure Category Date Status Time Admit ADMIT 06/03/25 Transmitted 20:50 Code Status CODE 06/03/25 Transmitted 20:50 Ondansetron Hcl PHA 06/03/25 Logged (Zofran) 21:00 Complete Blood Count LAB 06/04/25 Verified 04:00 Comprehensive LAB 06/04/25 Verified Metabolic Panel 04:00 Cardiac DIET 06/04/25 Transmitted Diet-2gna,Lofat,Lochol Breakfast Echo 2d Mode Cardiac US 06/03/25 Logged DOP 20:50 Carotid Duplx W Color US 06/03/25 Logged DOP 20:50 Condition: Unstable ZULLY 06/03/25 In Process 20:50 Acetaminophen Tablet PHA 06/03/25 Logged (Tylenol Tablet) 21:00 Lovenox 40mg PHA 06/03/25 Transmitted 21:00 Notify Of Changes ZULLY 06/03/25 In Process From Base 20:50 Unloading Checker For ZULLY 06/03/25 In Process 24 Hours 20:50 Magnesium LAB 06/03/25 In Process 20:50 Thyroid Stimulating LAB 06/03/25 In Process Hormone 20:50 Drug Screen LAB 06/03/25 Logged 20:50 Atorvastatin (Lipitor) PHA 06/04/25 Transmitted 10:00 (Nf) Aspirin (Aspirin PHA 06/04/25 Transmitted Low Dose) 10:00 (NF) PHA 06/04/25 Transmitted Hydrochlorothiazide 10:00 (Nf) Losartan PHA 06/04/25 Transmitted Potassium 10:00 Hepatic Panel LAB 06/03/25 In Process 20:[address] 06/03/25 Logged 20:50 Ammonia LAB 06/03/25 Logged 20:50 Covid19 Antigen Catherine LAB 06/03/25 Logged Rapid Influenza A&B LAB 06/03/25 Logged 20:50 ALEJANDRA ALTAMIRANO RESIDENT Jun 03, 2025 22:06 MELISSA MCINTYRE RESIDENT Jun 04, 2025 04:52
[2025-06-03 22:38] LABS: Alanine Aminotransferase 15.0 U/L (7-40); Albumin 4.4 g/dL (3.2-4.8); Bilirubin, Direct 0.1 mg/dL (<0.3); Bilirubin, Total 0.4 mg/dL (0.2-1.0); Magnesium 1.9 mg/dL (1.6-2.6); Total Protein 7.3 g/dL (5.7-8.2)
[2025-06-03 22:40] LABS: Alkaline Phosphatase 149.0 U/L (46-116)
[2025-06-03 22:43] LABS: Barbiturate Scree,Urine Neg (NEGATIVE); Benzodiazephine Screen, Urine Neg (NEGATIVE); Cocaine Screen, Urine Neg (NEGATIVE); Opiate Scree,Urine Neg (NEGATIVE); Phencyclidine Screen, Urine Neg (NEGATIVE)
[2025-06-03 22:53] LABS: Cannabinoid Screen, Urine Neg (NEGATIVE)
--- NOTE | 2025-06-03 23:04 | DVH ---
EXAM: CT CHEST WITHOUT CONTRAST History: nodular opacity in lung Comparison Study: CT CHEST WO on DOS: 06/29/24, CR CHEST 2 VIEW on DOS: 06/01/24 TECHNIQUE: Multidetector CT of the chest was performed. Imaging was performed without IV contrast. Axial, coronal, and sagittal multiplanar reformats were obtained from the axial data set by the technologist. Radiation Dose : CTDI vol 17.49 mGy, DLP 620.47 mGy*cm. Findings: Evaluation is degraded by respiratory motion. Lungs: Scattered atelectasis/ scarring. Calcified granulomas are seen within the left lower lobe. Pleura: Unremarkable Heart/Great vessels: No cardiomegaly or pericardial effusion. Prior TAVR. Mild atherosclerotic vascular calcification. Mediastinum: Unremarkable. Soft tissues/Bones: Unremarkable Upper abdomen: Probable hepatic cysts, incompletely assessed. Large hiatal hernia. Impression: 1. No acute intrathoracic abnormality. Calcified granulomas account for the opacity demonstrated on recent chest radiograph. 2. Incidental findings as detailed.
[2025-06-03 23:09] LABS: COVID19 ANTIGEN SOFIA FIA NEGATIVE (NEGATIVE)
[2025-06-03 23:42] LABS: Amphetamine Screen, Urine Neg (NEGATIVE)
[2025-06-03 23:44] VITALS: PULSE 85; RESP 17; O2SAT 96
[2025-06-04] VITALS (8 sets, daily range): BP systolic 92–142; BP diastolic 47–77; PULSE 67–88; RESP 14–18; TEMP 97.5–98.5; O2SAT 95–97
--- NOTE | 2025-06-04 00:12 | ECG ---
[facility] Test Date: 2025-06-03 Test Time: 22:53:06 Pat Name: ZAIRA LORENZO Department: ED Room: 0278T B Gender: F Pelota Maker: DIANNE : 1940 Requested By: EVONNE FLOOD Order Number: [id number] Reading MD: Rodolfo Strickland Measurements Intervals [place] Rate: 79 P: 45 IN: 183 QRS: -70 QRSD: 153 T: 91 QT: 414 QTc: 475 Interpretive Statements Atrial-sensed ventricular-paced complexes No further rhythm analysis attempted due to paced rhythm Probable left atrial enlargement Nonspecific IVCD with LAD LVH with secondary repolarization abnormality Inferior infarct, acute (RCA) Anteroseptal infarct, possibly acute Lateral leads are also involved Probable RV involvement, suggest recording right precordial leads Baseline wander in lead(s) V2,V3,V6 Electronically Signed On 06-04-2025 15:47:06 PST by Rodolfo Strickland Please click the below link to view image of tracing.
[2025-06-04] MEDS: PANTOPRAZOLE 40 MG TAB PO SCH (05:47)
[2025-06-04] MEDS: SODIUM CHLORIDE 0.9% 1,000 ML IV ONE (05:47)
[2025-06-04 06:10] LABS: Hematocrit 42.2 % (36.0-46.0); Hemoglobin 14.6 g/dL (12.2-16.2); Mean Corpuscular Hemoglobin 32.3 pg (28.0-32.0); Mean Corpuscular Volume 93.5 fL (80.0-100.0); Nucleated Red Blood Cells % 0.0 %
[2025-06-04 06:34] LABS: Alanine Aminotransferase 12 U/L (7-40); Albumin 3.9 g/dL (3.2-4.8); Anion Gap 10 (5-15); BUN/Creatinine Ratio 19.2 (10.0-20.0); Blood Urea Nitrogen 20 mg/dL (9-23); Calcium 9.0 mg/dL (8.7-10.4); Carbon Dioxide 27 mmol/L (20-31); Chloride 99 mmol/L (98-107); Glucose 86 mg/dL (74-106); Potassium 4.2 mmol/L (3.5-5.1); Sodium 136 mmol/L (136-145); Total Protein 6.5 g/dL (5.7-8.2)
[2025-06-04 06:35] LABS: Bilirubin, Total 0.5 mg/dL (0.2-1.0)
[2025-06-04 06:36] LABS: Alkaline Phosphatase 121 U/L (46-116)
--- NOTE | 2025-06-04 08:38 | DVH ---
Carotid Duplex Date: 06/04/2025 07:15 AM Clinical History: dizziness Comparison: None Technique: Duplex Doppler evaluation of the extracranial carotid and vertebral arteries including color Doppler and spectral/pulsed waveform analysis was performed. Findings: Velocities and ratios within normal limits Bilateral antegrade vertebral artery flow IMPRESSION: No hemodynamically significant stenosis noted in the right carotid system. No hemodynamically significant stenosis noted in the left carotid system. Reference: Radiology 2003; 229:[id number]
[2025-06-04] MEDS: ATORVASTATIN 20 MG TAB PO SCH ×2 (09:52→21:20)
[2025-06-04] MEDS: ASPirin-EC 81 mg tab PO SCH (10:00)
[2025-06-04] MEDS: TRIAMTERENE/HCTZ 37.5/25 MG CAP/TAB PO SCH (10:00)
[2025-06-04] MEDS: LOSARTAN POTASSIUM 50 MG TAB PO SCH (10:00)
[2025-06-04] MEDS: ERGOCALCIFEROL 50,000 UNIT(1.25MG) CAP PO SCH (15:17)
--- NOTE | 2025-06-04 20:37 | DVHPNRES ---
Progress Note Date Seen: Jun 04, 2025 Resident Creating Document: ISAK LORENZO RESIDENT Has the PT tested + for MRSA If YES, has PT been informed?: No Medical Necessity Reason Pt with a Central, PICC or Fol: No Subjective Review of Systems Rosa Child is a 84-year-old female patient, with a past medical history of hypertension, hyperlipidemia, tuberculosis at age 1, surgical history of TAVR with pacemaker placement, right total hip arthroplasty has come in with the chief complaints of generalized weakness, forgetfulness, confusion and brain fog for the past 5 days. Patient reports that she started a new weight loss supplement called 'lipomax' 5 days ago, which she ordered online, after which the symptoms began and when she stopped it 2 days ago, her symptoms got better. She elaborates that she would forget what she was talking about mid conversation and would feel disoriented, noticed by her children who urged her to visit the ER believing it was a CVA event. On inquiry, patient denies any dizziness, change in speech/slurring, weakness in 1 side of the body, facial drooping, loss of consciousness, palpitations, chest pain, shortness of breath, nausea, vomiting or GERD symptoms. On admission vitals are stable temp 97.6, HR 68, RR 18, BP 133/98 mmHg, SpO2 96% in room air. Head CT shows no acute intracranial abnormality, chest x-ray shows nodular obesity in the left lower lung, 2.4 cm And moderate hiatal hernia. we are admitting the patient for further workup and management PMH: As stated above PSH: As stated above Family history: Reviewed, noncontributory to the management of this case Social history: Patient denies ever smoking or abusing illicit drugs, drinks 1 glass of wine occasionally allergies: Sulfa drugs, codeine, tetanus shots PCP: Dr. Harry Bowers( new PCP, patient has not visited yet), old PCP was Dr. Orozco code status: Modified code, okay to all measures except shock. Hospital course: On 06/04/25, the patient was evaluated and examined at bedside. VS, Labs and chart was reviewed. The patient reports feeling better today, but she is feeling confused. The UA showed a UTI that is being treated with IV antibiotic. The patient has a pacemaker, We have request to [employer] to questioning the device. ECHO was performed today and the carotid ultrasounds, the report has not been released yet. We will continue following this patient closely. ROS: Constitutional: Yes: Weakness, Other (confusion); No: Fever, Chills, Sweats, Malaise Eyes: No: Pain, Vision change, Conjunctivae inflammation, Eyelid inflammation, Other, Redness ENT: No: Ear pain, Ear discharge, Nose pain, Nose discharge, Nose congestion, Mouth pain, Mouth swelling, Throat pain, Throat swelling, Other Respiratory: No: Cough, Dry, Shortness of breath, SOB with excertion, Wheezing, Hemoptysis, Pleuritic Pain, Sputum, Wheezing, Other Cardiovascular: No: Chest Pain, Palpitations, Orthopnea, Paroxysmal Noc. Dyspnea, Edema, Lt Headedness, Other Gastrointestinal: No: Nausea, Vomiting, Abdominal Pain, Diarrhea, Constipation, Melena, Hematochezia, Other Genitourinary: No Dysuria, No Frequency, No Incontinence, No Hematuria, No Retention, No Other Musculoskeletal: No: other, neck pain, shoulder pain, arm pain, back pain, hand pain, leg pain, foot pain Skin: No: Rash, Lesions, Jaundice, Bruising, Other Neurological: No: Weakness, Numbness, Incoordination, Change in speech, Confusion, Seizures, Other Allergies: Coded Allergies: Sulfa Antibiotics (Unverified Allergy, Mild, rash, 07/31/24) Tetanus Immune Globulin (Unverified Allergy, Mild, rash, 07/31/24) Codeine (Unverified Adverse Reaction, Severe, ALOC, 07/31/24) Objective vital signs Vital Sign Date Time Temp Pulse Resp B/P (MAP) Pulse Ox O2 Delivery O2 Flow Rate FiO2 06/04/25 16:50 97.5 67 16 110/77 (88) 96 97.5 06/04/25 08:00 Room Air* 0 21 Total Intake and Output 06/03/25 06/03/25 06/04/25 15:00 23:00 07:00 Intake Total 0 ml Balance 0 ml medications Current Medications Medications Dose Ordered Sig/Robert Route Start Time Stop Time Status Last Admin Dose Admin Ondansetron HCl 4 mg Q4HP PRN IV 06/03/25 21:00 Acetaminophen 650 mg Q6HP PRN PO 06/03/25 21:00 Enoxaparin Sodium 40 mg DAILY SC 06/03/25 21:00 Aspirin 81 mg DAILY PO 06/04/25 10:00 06/04/25 10:00 81 MG Triamterene/HCTZ 1 cap DAILY PO 06/04/25 10:00 Pantoprazole Sodium 40 mg DAILY@0600 PO 06/04/25 06:00 06/04/25 05:47 40 MG Ceftriaxone Sodium 50 ml @ 100 mls/hr DAILY@ IV 06/04/25 09:00 UNV Ceftriaxone Sodium 50 ml @ 100 mls/hr DAILY@ IV 06/05/25 09:00 Metoprolol Tartrate 25 mg BID PO 06/04/25 22:00 Ergocalciferol 50,000 unit Q7D PO 06/04/25 12:00 06/04/25 15:17 50,000 UNIT Atorvastatin Calcium 20 mg HS PO 06/04/25 22:00 Examination General Appearance: Alert, not in acute distress. Cooperative, Not in acute distress HEENT: Atraumatic, Mucous membranes moist/pink Respiratory: Clear to auscultation, Normal air movement, No added sounds Cardiovascular: Regular rate, Normal S1, Normal S2, No murmurs Abdominal: Active bowel sounds, Soft, no distention, no tenderness Extremities: No edema, Normal pulses, No tenderness/swelling Skin: No Significant rash, except past surgical scars Neuro: Normal speech, sensorimotor deficits none Psych/Mental Status: Oriented X3, but confused in some details of her medical hi story. laboratory and microbiology Laboratory Tests 06/04/25 05:27 Test 06/04/25 05:27 Range/Units Serum Glucose 86 74-106 mg/dL Problem List/Assessment/Plan Problem List/Assessment/Plan #Acute metabolic/ toxic encephalopathy possible due to acute UTI #Acute UTI, possible due to cystitis with hematuria -Urine shows blood 1+, nitrate 2+, leukocyte esterase 3+, WBC to 89, bacteria many, squamous epithelial cells moderate, RBC 8 -urine culture -IV ceftriaxone 1g IV daily -IV fluid NS 0.9% -Ammonia <10 -UDS negative -Magnesium 1.9 -COVID/flu- negative -TSH 1.54 -Carotid Doppler -Ekg -Echo -CT head shows no acute intracranial abnormalities, patchy periventricular and subcortical white matter hypoattenuation which is nonspecific may relate to small-vessel disease -acetaminophen 650 mg p.o. q.6 PRN #Hx of TAVR The patient has a pacemaker Device interrogation requested ECHO US doppler: Carotids. #Left lower lung nodule #History of TB as a child. -chest x-ray shows Nodular opacity in the left lower lung measuring 2.4 cm. Recommend further evaluation with CT chest. -chest CT without contrast as out patient. 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 daily scheduled -continue home medication aspirin 81 mg p.o. daily scheduled -continue home medication atorvastatin 20 mg p.o. daily scheduled -continue medication hydrochlorothiazide one capsule p.o. daily scheduled GI prophylaxis: Protonix 40 mg per orally daily DVT prophylaxis: Lovenox 40 mg subcutaneous daily Diet: cardiac diet PCP: Dr. Harry Bowers( new PCP, patient has not visited yet), old PCP was Dr. Orozco code status: Modified code, okay to all measures except shock. Goals of care discussed with the patient for more than 30 minutes Case discussed with Dr. Ramachandran, patient. Plan discussed with: Patient, Son My Orders My Orders Orders - ISAK LORENZO Procedure Category Date Status Time Code Status CODE 06/04/25 Transmitted 07:32 Modified Resuscitive CODE 06/04/25 Transmitted Measures Metoprolol Tartrate PHA 06/04/25 In Process Tablet (Lopressor Ta 22:00 Radiologic Technology Teacher To Assess ORDERS 06/04/25 Transmitted Pacemaker 11:53 Atorvastatin (Lipitor) PHA 06/04/25 In Process 22:00 Complete Blood Count LAB 06/05/25 Verified 04:00 Basic Metabolic Panel LAB 06/05/25 Verified 04:00 Date of Service: Jun 04, 2025 Billing Provider: NARCISO RAMACHANDRAN MD Common Visit Codes: 83816-[id number] INP/OBS CARE(HIGH) ISAK LORENZO RESIDENT Jun 04, 2025 20:37
[2025-06-04] MEDS: METOPROLOL TARTRATE 25 MG TAB PO SCH (22:00)
[2025-06-04] MEDS: LOSARTAN POTASSIUM 50 MG TAB PO ONE (23:03)
[2025-06-05 01:00] VITALS: BP 144/70; PULSE 71; RESP 16; TEMP 97.8; O2SAT 94
[2025-06-05 05:00] VITALS: BP 147/74; PULSE 71; RESP 16; TEMP 97.4; O2SAT 94
[2025-06-05] MEDS: CYANOCOBALAMIN (B-12) 1000 MCG/1 ML VIAL IM ONE (07:15)
[2025-06-05 07:47] LABS: Hematocrit 38.8 % (36.0-46.0); Hemoglobin 13.6 g/dL (12.2-16.2); Mean Corpuscular Hemoglobin 32.4 pg (28.0-32.0); Mean Corpuscular Volume 92.7 fL (80.0-100.0); Nucleated Red Blood Cells % 0.0 %
[2025-06-05 07:52] LABS: Anion Gap 10 (5-15); Calcium 8.8 mg/dL (8.7-10.4); Carbon Dioxide 24 mmol/L (20-31); Potassium 3.8 mmol/L (3.5-5.1)
[2025-06-05 07:58] LABS: BUN/Creatinine Ratio 21.5 (10.0-20.0); Blood Urea Nitrogen 17 mg/dL (9-23); Glucose 89 mg/dL (74-106)
[2025-06-05 07:59] LABS: Chloride 97 mmol/L (98-107); Sodium 131 mmol/L (136-145)
[2025-06-05 08:00] VITALS: PULSE 69; PULSE 70; RESP 18; O2SAT 95
[2025-06-05 09:00] VITALS: BP 120/78; PULSE 77; RESP 16; TEMP 97.9; O2SAT 95
[2025-06-05] MEDS: LOSARTAN POTASSIUM 50 MG TAB PO SCH (10:00)
[2025-06-05 12:44] VITALS: BP 136/75; PULSE 64; RESP 16; TEMP 97.6; O2SAT 95
[2025-06-05] MEDS ORDERED: CYAN100056 PO (13:38)
[2025-06-05] MEDS ORDERED: CIPR500T4 PO (13:38)
[2025-06-05] MEDS ORDERED: ERGO1CAP23 PO (13:38)
--- NOTE | 2025-06-05 13:38 | DVHDSRES ---
Discharge Summary Date of Admission Resident Creating Document: STEPHON THRASHER RESIDENT Jun 03, 2025 at 20:50 Date of Discharge: Jun 05, 2025 Admitting Diagnosis Brain fog Wounds: No open wound was present Labs/Diagnostic Data: Laboratory Results Test 06/05/25 06:09 06/04/25 05:27 06/04/25 05:24 06/03/25 22:33 White Blood Count 8.1 10^3/uL (4.4-10.8) Red Blood Count 4.19 10^6/uL (4.0-5.20) Hemoglobin 13.6 g/dL (12.2-16.2) Hematocrit 38.8 % (36.0-46.0) Mean Corpuscular Volume 92.7 fL (80.0-100.0) Mean Corpuscular Hemoglobin 32.4 pg (28.0-32.0) Mean Corpuscular Hemoglobin Concent 34.9 g/dL (32.0-36.0) Red Cell Distribution Width 13.3 % (11.8-14.3) Platelet Count 215 10^3/uL (140-450) Mean Platelet Volume 8.2 fL (6.9-10.8) Neutrophils (%) (Auto) 79.9 % (37.0-80.0) Lymphocytes (%) (Auto) 9.0 % (10.0-50.0) Monocytes (%) (Auto) 8.9 % (0.0-12.0) Eosinophils (%) (Auto) 1.7 % (0.0-7.0) Basophils (%) (Auto) 0.5 % (0.0-2.0) Neutrophils # (Auto) 6.5 10 ^3/uL (1.6-8.6) Lymphocytes # (Auto) 0.7 10 ^3/uL (0.4-5.4) Monocytes # (Auto) 0.7 10 ^3/uL (0-1.3) Eosinophils # (Auto) 0.1 10 ^3/uL (0-0.8) Basophils # (Auto) 0 10 ^3/uL (0-0.2) Nucleated Red Blood Cells 0.0 % Sodium Level 131 mmol/L (136-145) Potassium Level 3.8 mmol/L (3.5-5.1) Chloride Level 97 mmol/L (98-107) Carbon Dioxide Level 24 mmol/L (20-31) Anion Gap 10 (5-15) Blood Urea Nitrogen 17 mg/dL (9-23) Creatinine 0.79 mg/dL (0.550-1.02) Glomerular Filtration Rate Calc 74 mL/min (>90) BUN/Creatinine Ratio 21.5 (10.0-20.0) Serum Glucose 89 mg/dL (74-106) Calcium Level 8.8 mg/dL (8.7-10.4) Total Bilirubin 0.5 mg/dL (0.2-1.0) Aspartate Amino Transferase (AST) 15 U/L (13-40) Alanine Aminotransferase (ALT) 12 U/L (7-40) Alkaline Phosphatase 121 U/L (46-116) Total Protein 6.5 g/dL (5.7-8.2) Albumin 3.9 g/dL (3.2-4.8) Vitamin B12 Level 185 pg/mL (211-911) Vitamin D 25-Hydroxy 27.2 ng/mL (30.0-100) Ammonia < 10 umol/L (11-32) Test 06/03/25 22:19 06/03/25 21:15 06/03/25 17:17 Influenza Type A Antigen Negative (Negative) Influenza Type B Antigen Negative (Negative) SARS-CoV-2 Antigen (Rapid) Negative (NEGATIVE) Urine Color Colorless (Yellow) Urine Clarity Turbid (Clear) Urine pH 6.0 (5.0-9.0) Urine Specific [place] 1.018 (1.001-1.035) Urine Protein Negative (Negative) Urine Ketones Negative (Negative) Urine Blood 1+ /uL (Negative) Urine Nitrite 2+ (Negative) Urine Bilirubin Negative (Negative) Urine Urobilinogen Normal mg/dL (Negative) Urine Leukocyte Esterase 3+ /uL (Negative) Urine RBC 8 /hpf (0 - 4) Urine WBC Clumps Present /hpf (None Seen) Urine Microscopic WBC 289 /HPF (0-5) Urine Squamous Epithelial Cells Mod /hpf (<5) Urine Bacteria Many /hpf (None Seen) Urine Glucose Normal mg/dL (Normal) Urine Opiates Screen Neg (NEGATIVE) Urine Fentanyl Screen Neg (NEGATIVE) Urine Barbiturates Screen Neg (NEGATIVE) Urine Phencyclidine Screen Neg (NEGATIVE) Urine Amphetamines Screen Neg (NEGATIVE) Urine Benzodiazepines Screen Neg (NEGATIVE) Urine Cocaine Screen Neg (NEGATIVE) Urine Cannabinoids Screen Neg (NEGATIVE) Magnesium Level 1.9 mg/dL (1.6-2.6) Direct Bilirubin 0.1 mg/dL (<0.3) Troponin I High Sensitivity 7 ng/L (</=34) Thyroid Stimulating Hormone (TSH) 1.54 uIU/mL (0.55-4.78) Other Laboratory Tests 06/05/25 06:09 Brief Hx & Hospital Course: Rosa Child is a 84-year-old female patient, with a past medical history of hypertension, hyperlipidemia, tuberculosis at age 1, surgical history of TAVR with pacemaker placement, right total hip arthroplasty has come in with the chief complaints of generalized weakness, forgetfulness, confusion and brain fog for the past 5 days. Patient reports that she started a new weight loss supplement called 'lipomax' 5 days ago, which she ordered online, after which the symptoms began and when she stopped it 2 days ago, her symptoms got better. She elaborates that she would forget what she was talking about mid conversation and would feel disoriented, noticed by her children who urged her to visit the ER believing it was a CVA event. On inquiry, patient denies any dizziness, change in speech/slurring, weakness in 1 side of the body, facial drooping, loss of consciousness, palpitations, chest pain, shortness of breath, nausea, vomiting or GERD symptoms. Hospital course: Patient was initially admitted for acute metabolic/ toxic encephalopathy, CT head without contrast showed no acute intracranial abnormality, patchy periventricular and subcortical white matter hypoattenuation which is nonspecific may relate to small vessel disease. Carotid doppler showed no hemodynamically significant stenosis in right and left carotid system. U/A was consistent with UTI, preliminary urine culture demonstrated Gram-negative rods. Patient was treated with IV ceftriaxone 1 g daily. Incidental finding of calcified granuloma in the CT chest which patient needs to follow up outpatient with PCP. Echo was done and needs to follow up with the echo report in DC clinic on next Saturday. pacemaker interrogation was done in the hospital. Cardiology was consulted for suspected arrhythmia, reviewed the patient and cleared for discharge. Discharge plan was discussed with the patient and all questions were answered. Patient is being discharged to home with ciprofloxacin 500 mg p.o. b.i.d, ergocalciferol 54040 units weekly and cyanocobalamin 1000 mcg p.o. daily, advised to continue home medications and follow up with a DC clinic on next Saturday with Dr. Garza/Dr. Phillip. Physical examination on the day of discharge: General Appearance: Alert, Oriented X3, Cooperative, No acute distress HEENT: Atraumatic, PERRLA, EOMI, Mucous membrane moist/pink Respiratory: Clear to auscultation, Normal air movement Cardiovascular: Regular rate, Normal S1, Normal S2, No murmurs, no chest wall tenderness Abdominal: Normal bowel sounds, Soft, No tenderness, No hepatosplenomegaly, No masses Extremities: No clubbing, No cyanosis, No edema, Normal pulses, No tenderness/swelling Skin: No rashes, No breakdown, No significant lesion Neuro: Use walker, Normal speech, Strength at 5/5 X4 ext, Normal tone, Sensation intact, Cranial nerves 3-12 NL, Reflexes 2+ Psych/Mental Status: Mental status NL, Mood NL Goals of care discussed with the patient for 20 minutes; modified full code; to do everything except electric shock Discussed with Dr. Garza Consults/Reason for consult Cardiology was consulted for suspected arrhythmias on the telemetry Operations or Procedures EXAM: XY CHEST PORTABLE Indication: AMS FINDINGS: Lines and Tubes: None this Lungs: Nodular opacity in the left lower lung measuring 2.4 cm. Pleura: No effusion. No pneumothorax. Cardiomediastinal contours: Unremarkable. Moderate hiatal hernia. Atherosclerotic vascular calcifications of the thoracic aorta are noted. Bones: No acute osseous abnormality. IMPRESSION: Nodular opacity in the left lower lung measuring 2.4 cm. Recommend further evaluation with CT chest. Moderate hiatal hernia. EXAM: CT HEAD WITHOUT CONTRAST INDICATION: AMS TECHNIQUE: CT of the head without intravenous contrast. FINDINGS: There is no evidence of acute intracranial hemorrhage, extra-axial collection, mass effect, midline shift, herniation or hydrocephalus. The ventricles, sulci and cisterns are age appropriate. The newell-white differentiation is intact. Patchy periventricular and subcortical white matter hypoattenuation is nonspecific but may be related to small vessel ischemic disease. The visualized paranasal sinuses and mastoid air cells are clear. The surrounding soft tissues and osseous structures are unremarkable. IMPRESSION: No acute intracranial abnormality. EXAM: CT CHEST WITHOUT CONTRAST Findings: Evaluation is degraded by respiratory motion. Lungs: Scattered atelectasis/ scarring. Calcified granulomas are seen within the left lower lobe. Pleura: Unremarkable Heart/Great vessels: No cardiomegaly or pericardial effusion. Prior TAVR. Mild atherosclerotic vascular calcification. Mediastinum: Unremarkable. Soft tissues/Bones: Unremarkable Upper abdomen: Probable hepatic cysts, incompletely assessed. Large hiatal hernia. Impression: 1. No acute intrathoracic abnormality. Calcified granulomas account for the opacity demonstrated on recent chest radiograph. 2. Incidental findings as detailed. Carotid Duplex Findings: Velocities and ratios within normal limits Bilateral antegrade vertebral artery flow IMPRESSION: No hemodynamically significant stenosis noted in the right carotid system. No hemodynamically significant stenosis noted in the left carotid system. Condition at Discharge: Stable Final Diagnosis/Problems List # Acute metabolic encephalopathy likely due to UTI; resolved # Acute complicated UTI; acute cystitis without hematuria # Left lower lung nodule; to follow up as outpatient # Hiatal hernia # Hypertensive heart disease with possible diastolic/systolic failure # Hyperlipidemia # S/P TAPVR and pacemaker # Arrhythmias ruled out as per cardiology Discharge Disposition: Home Discharge Instruct/Medications Diet: Cardiac 2g Na,low cholest Activity: No Restrictions, As Tolerated Follow Up/Referral: Follow up with D/C clinic in 1 week; to follow up with the primary care provider within two weeks; to follow up with primary Cardiology within two weeks Medications: Ciprofloxacin 500 mg p.o. b.i.d. for 7 days Scheduled Aspirin (Aspirin Low Dose), 81 MG PO DAILY, (Reported) Atorvastatin Calcium (Lipitor), 20 MG PO DAILY, (Reported) Ciprofloxacin Hcl (Ciprofloxacin Hcl), 1 TAB PO BID Cyanocobalamin (B-12), 1,000 MCG PO DAILY Ergocalciferol (Vitamin D 55203 Unit), 50,000 UNIT PO weekly Hydrochlorothiazide W/Triamter (Triamterene/Hydrochloroth), 1 CAP PO DAILY, (Reported) Losartan Potassium (Losartan Potassium), 100 MG PO DAILY, (Reported) Discontinued Medications Potassium Chloride (Potassium Chloride ER), 10 MEQ PO DAILY, (Reported) Discharge Statement: "Patient was advised to return to the ER or call 911 if any headaches, dizziness, shortness of breath, chest pain, abdominal pain, bleeding, fevers, or worsening of medical condition. Patient was counseled about treatment plan, medications, possible side effects, patientverbalized understanding. All questions were answered to the best of my ability. This discharge took greater then 30 minutes in planning, reviewing documentation, counseling the patient, and discussing with other team members." ASSESSMENT ASSESSMENT Assessment Date of Service: Jun 05, 2025 Billing Provider: VARGHESE GARZA MD Common Visit Codes: 67990-ENJ/OBS DISCH DAY >30min Secondary Visit Codes: 77016-[id number] CARE PLAN 30 MINUTES (20 minutes) STEPHON THRASHER RESIDENT Jun 05, 2025 13:38 VARGHESE GARZA MD Jun 08, 2025 07:28
--- NOTE | 2025-06-05 14:01 | DVHINCON2 ---
Date Seen: Jun 05, 2025 Referring Physician Quoc Reason for Consultation Suspected NSVT History of Present Illness 84-year-old female with PMH for HTN, HLD, TAVR, SSS s/p ppm, right hip arthroplasty presents to the hospital with generalized weakness forgetfulness confusion brain followed. Patient was initially rule out stroke for which CT head was unremarkable, carotid Doppler negative for significant stenosis. While on telemetry patient had episode of suspected in his VT/arrhythmia, cardiology consulted. Past Medical History As stated above Past Surgical History TAVR, ppm implantation. Family History: FHx: heart failure G8 MOTHER G8 FATHER Hypertension G8 MOTHER G8 FATHER No Family History of: Arthritis Allergies: Coded Allergies: Sulfa Antibiotics (Unverified Allergy, Mild, rash, 07/31/24) Tetanus Immune Globulin (Unverified Allergy, Mild, rash, 07/31/24) Codeine (Unverified Adverse Reaction, Severe, ALOC, 07/31/24) Home Meds Active Scripts Cyanocobalamin (B-12) 1,000 Mcg Cap, 1000 MCG PO DAILY for 30 Days, #30 CAP Prov:STEPHON THRASHER RESIDENT 06/05/25 Ergocalciferol (VITAMIN D 84933 UNIT) 50,000 [place], [address] UNIT PO weekly for 10 Days, #10 CAP Prov:STEPHON THRASHER RESIDENT 06/05/25 Ciprofloxacin Hcl (Ciprofloxacin Hcl) 500 Mg Tab, 1 TAB PO BID for 7 Days, #14 TAB Prov:STEPHON THRASHER RESIDENT 06/05/25 Reported Medications Aspirin (Aspirin Low Dose) 81 Mg Chw, 81 MG PO DAILY, TAB.CHEW 07/31/24 Atorvastatin Calcium (Lipitor) 20 Mg Tab, 20 MG PO DAILY, TAB 07/31/24 Losartan Potassium (Losartan Potassium) 100 Mg Tab, 100 MG PO DAILY, TAB 07/31/24 Potassium Chloride (Potassium Chloride ER) 10 Meq Tab, 10 MEQ PO DAILY, TAB 07/31/24 Hydrochlorothiazide W/Triamter (Triamterene/Hydrochloroth) 1 Cap Cap, 1 CAP PO DAILY, CAP 07/31/24 Current Medications Current Medications Medications (Trade) Dose Ordered Sig/Robert Route PRN Reason Start Time Stop Time Status Last Admin Ceftriaxone Sodium 50 ml @ 100 mls/hr DAILY@09 IV 06/05/25 09:00 06/05/25 10:51 Metoprolol Tartrate (Lopressor Tablet) 25 mg BID PO 06/04/25 22:00 06/04/25 22:54 DC Atorvastatin Calcium (Lipitor) 20 mg HS PO 06/04/25 22:00 06/04/25 21:20 Losartan Potassium (Cozaar Tablet) 100 mg DAILY PO 06/05/25 10:00 06/05/25 10:00 Cyanocobalamin (Vitamin B-12) 500 mcg DAILY PO 06/06/25 10:00 Review of Systems Constitutional: No: Fever, Chills, Sweats, Weakness, Malaise, Other Eyes: No: Pain, Vision change, Conjunctivae inflammation, Eyelid inflammation, Other, Redness ENT: No: Ear pain, Ear discharge, Nose pain, Nose discharge, Nose congestion, Mouth pain, Mouth swelling, Throat pain, Throat swelling, Other Respiratory: No: Cough, Dry, Shortness of breath, SOB with exertion, Wheezing, Hemoptysis, Pleuritic Pain, Sputum, Wheezing, Other Cardiovascular: ; No: Chest Pain Palpitations, Orthopnea, Paroxysmal Noc. Dyspnea, Edema, Lt Headedness, Other Gastrointestinal: No: Nausea, Vomiting, Abdominal Pain, Diarrhea, Constipation, Melena, Hematochezia, Other Genitourinary: No Dysuria, No Frequency, No Incontinence, No Hematuria, No Retention, No Other Musculoskeletal: neck pain; No: other, shoulder pain, arm pain, back pain, hand pain, leg pain, foot pain Skin: No: Rash, Lesions, Jaundice, Bruising, Other Neurological: Other (Dizziness, headache.); No: Weakness, Numbness, Incoordination, Change in speech, Confusion, Seizures Vital Signs Vital Signs Date Time Temp Pulse Resp B/P (MAP) Pulse Ox O2 Delivery O2 Flow Rate FiO2 06/05/25 12:44 97.6 64 16 136/75 (95) 95 97.6 06/05/25 08:00 Room Air* 0 21 Physical Exam General appearance: Patient is well-developed, well-nourished, in no acute distress. HEENT: Exam shows: Normocephalic, atraumatic, PERRLA, EOMI Neck: Supple, no bruits Chest: Equal chest excursion bilaterally. Breath sounds normal-no rales or wheezes. Heart: Rhythm: Regular rate; AV paced no murmur or gallop Abdomen: Exam shows: Soft, nontender, nondistended Musculoskeletal: No clubbing, no cyanosis, no lower extremity edema Dermatology: Skin warm, moist. Neurological: Exam shows: Alert and oriented x4, normal speech Available prior records, labs, EKG, rhythm strips reviewed and interpreted Labs/Diagnostic Data Labs Test 06/05/25 06:09 06/04/25 05:27 06/04/25 05:24 06/03/25 22:33 Range/Units White Blood Count 8.1 4.4-10.8 10^3/uL Red Blood Count 4.19 4.0-5.20 10^6/uL Hemoglobin 13.6 12.2-16.2 g/dL Hematocrit 38.8 36.0-46.0 % Mean Corpuscular Volume 92.7 80.0-100.0 fL Mean Corpuscular Hemoglobin 32.4 H 28.0-32.0 pg Mean Corpuscular Hemoglobin Concent 34.9 32.0-36.0 g/dL Red Cell Distribution Width 13.3 11.8-14.3 % Platelet Count 215 140-450 10^3/uL Mean Platelet Volume 8.2 6.9-10.8 fL Neutrophils (%) (Auto) 79.9 37.0-80.0 % Lymphocytes (%) (Auto) 9.0 L 10.0-50.0 % Monocytes (%) (Auto) 8.9 0.0-12.0 % Eosinophils (%) (Auto) 1.7 0.0-7.0 % Basophils (%) (Auto) 0.5 0.0-2.0 % Neutrophils # (Auto) 6.5 1.6-8.6 10 ^3/uL Lymphocytes # (Auto) 0.7 0.4-5.4 10 ^3/uL Monocytes # (Auto) 0.7 0-1.3 10 ^3/uL Eosinophils # (Auto) 0.1 0-0.8 10 ^3/uL Basophils # (Auto) 0 0-0.2 10 ^3/uL Nucleated Red Blood Cells 0.0 % Sodium Level 131 #L 136-145 mmol/L Potassium Level 3.8 3.5-5.1 mmol/L Chloride Level 97 L 98-107 mmol/L Carbon Dioxide Level 24 20-31 mmol/L Anion Gap 10 5-15 Blood Urea Nitrogen 17 9-23 mg/dL Creatinine 0.79 0.550-1.02 mg/dL Glomerular Filtration Rate Calc 74 >90 mL/min BUN/Creatinine Ratio 21.5 H 10.0-20.0 Serum Glucose 89 74-106 mg/dL Calcium Level 8.8 8.7-10.4 mg/dL Total Bilirubin 0.5 0.2-1.0 mg/dL Aspartate Amino Transferase (AST) 15 13-40 U/L Alanine Aminotransferase (ALT) 12 7-40 U/L Alkaline Phosphatase 121 H 46-116 U/L Total Protein 6.5 5.7-8.2 g/dL Albumin 3.9 3.2-4.8 g/dL Vitamin B12 Level 185 L 211-911 pg/mL Vitamin D 25-Hydroxy 27.2 L 30.0-100 ng/mL Ammonia < 10 L 11-32 umol/L Test 06/03/25 22:19 06/03/25 21:15 06/03/25 17:17 Range/Units Influenza Type A Antigen Negative Negative Influenza Type B Antigen Negative Negative SARS-CoV-2 Antigen (Rapid) Negative NEGATIVE Urine Color Colorless Yellow Urine Clarity Turbid H Clear Urine pH 6.0 5.0-9.0 Urine Specific [place] 1.018 1.001-1.035 Urine Protein Negative Negative Urine Ketones Negative Negative Urine Blood 1+ H Negative /uL Urine Nitrite 2+ H Negative Urine Bilirubin Negative Negative Urine Urobilinogen Normal Negative mg/dL Urine Leukocyte Esterase 3+ Negative /uL Urine RBC 8 0 - 4 /hpf Urine WBC Clumps Present None Seen /hpf Urine Microscopic WBC 289 H 0-5 /HPF Urine Squamous Epithelial Cells Mod <5 /hpf Urine Bacteria Many H None Seen /hpf Urine Glucose Normal Normal mg/dL Urine Opiates Screen Neg NEGATIVE Urine Fentanyl Screen Neg NEGATIVE Urine Barbiturates Screen Neg NEGATIVE Urine Phencyclidine Screen Neg NEGATIVE Urine Amphetamines Screen Neg NEGATIVE Urine Benzodiazepines Screen Neg NEGATIVE Urine Cocaine Screen Neg NEGATIVE Urine Cannabinoids Screen Neg NEGATIVE Magnesium Level 1.9 1.6-2.6 mg/dL Direct Bilirubin 0.1 <0.3 mg/dL Troponin I High Sensitivity 7 </=34 ng/L Thyroid Stimulating Hormone (TSH) 1.54 0.55-4.78 uIU/mL Microbiology Date/Time Source Procedure Growth Status 06/04/25 04:10 Voided Urine Urine Culture - Preliminary Resulted Assessment * Suspected arrhythmia - no SVT noted. Patient to continue with outpatient event monitoring, ppm interrogation follow up echocardiogram. * Suspected stroke versus encephalopathy - symptoms now resolved. CT negative. Follow up echocardiogram. * Acute cystitis with hematuria - on IV antibiotics. Management per primary team. * HTN - stable on current regimen, continue monitoring. Case Discussed with Dr Suárez . No significant arrhythmias noted on telemetry review. Follow up echo, if no significant abnormalities noted patient is stable from Cardiology standpoint for DC. There is no further cardiac work-up indicated at this time. Thank you for allowing us to participate in this patient's care. Will sign off. Critical care, time spent: 37 minutes This medical document was created using an electronic medical record system with voice recognition software and computerized dictation system. Although this document has been carefully reviewed, there might still be some phonetic and t ypographical errors. Occasional wrong-word or ``sound-alike substitutions may have occurred due to the inherent limitations of voice recognition software. These areas are purely typographical due to imperfections of the software programs and do not reflect any compromise in the patient's medical care. Please read the chart carefully and recognize, using context, where these swan bstitutions have occurred. Thank you for allowing me to participate in the management of this patient. The treatment plan was discussed with and agreed upon by patient/family including requesting consultants and ordering of imaging/procedures. Plan discussed with: Patient NYHA Physical activity limitations: NA Date of Service: Jun 05, 2025 Billing Provider: JOCELYN CANTRELL Cardiology Common Codes: 70905-[id number] INP/OBS CARE (High), [id number] CARE 30-74 MIN JOCELYN CANTRELL Jun 05, 2025 14:01
--- NOTE | 2025-06-05 15:18 | DVHSR ---
APPROVED REPORT EXAM: Two-dimensional and M-mode echocardiogram with Doppler and color Doppler. Blood Pressure: 110/59 mmHg INDICATION Possible TIA, eval EF Surgery/Intervention Valve Replacement: Type: TAVR Pacemaker: RISK [employer]CTORS Height: 67, Weight: 208 DIMENSIONS LVDd 4.6 (3.8-5.7cm) LA (2D) 5.0 (1.9-4.0cm) Aortic Root (2.0-3.7cm) LVDs 3.4 (2.5-4.0cm) LA (MM) (1.9-4.0cm) Aortic Cusp Exc (1.5-2.0cm) EF (%) 50.0 (55-70%) Rt. Atrium 4.1 (1.9-4.0cm) Asc. Aorta cm Mitral Valve Mitral Mitral Stenosis E wave 1.23m/s MV Mean GR. 4mmHg A wave 1.51m/s MV Peak GR. 90mmHg E/A ratio 0.8 2D MVA cm2 DECEL Time 271ms PRESS 1/2 Time 83ms IVRT ms Dop MVA 2.66cm2 Aortic Valve Aortic Valve Aortic Stenosis V1 0.93m/s AO Mean GR. 15mmHg V2 2.51m/s AO Peak GR. 25mmHg Tricuspid Valve TR Velocity 2.73m/s RVSP 35mmHg Conclusion MILD LVH AND MILD LV DIASTOLIC DYSFUNCTION MODERATELY DILATED LA LV EF IS 50% AND IS LOW NORMAL MODERATELY CALCIFIED AORTIC LEAFLETS PEAK AORTIC GRADIENT IS 25 MM OF HG AND MEAN GRADIENT IS 15 MM OF HG MILD AORTIC STENOSIS MITRAL ANNULAR CALCIFICATION NORMAL TV AND PV NORMAL RV FUNCTION NO EFFUSION
[2025-06-05 16:53] VITALS: BP 133/75; PULSE 65; RESP 18; TEMP 97.1; O2SAT 96
--- NOTE | 2025-06-05 23:11 | DVHINCON2 ---
Date Seen: Jun 05, 2025 Referring Physician Quoc Reason for Consultation Suspected NSVT History of Present Illness This is an 84-year-old female with a PMH of HTN, HLD, TAVR, SSS s/p ppm, right hip arthroplasty presents to the hospital with generalized weakness forgetfulness confusion brain followed. Patient was initially rule out stroke for which CT head was unremarkable, carotid Doppler negative for significant stenosis. While on telemetry patient had episode of suspected in his VT/arrhythmia. Cardiology was consulted at this time. Past Medical History As stated above Past Surgical History TAVR, ppm implantation. Family History: FHx: heart failure G8 MOTHER G8 FATHER Hypertension G8 MOTHER G8 FATHER No Family History of: Arthritis Allergies: Coded Allergies: Sulfa Antibiotics (Unverified Allergy, Mild, rash, 07/31/24) Tetanus Immune Globulin (Unverified Allergy, Mild, rash, 07/31/24) Codeine (Unverified Adverse Reaction, Severe, ALOC, 07/31/24) Home Meds Active Scripts Cyanocobalamin (B-12) 1,000 Mcg Cap, 1000 MCG PO DAILY for 30 Days, #30 CAP Prov:ZORAIDA THRASHERRA RESIDENT 06/05/25 Ergocalciferol (VITAMIN D 35423 UNIT) 50,000 [place], [address] UNIT PO weekly for 10 Days, #10 CAP Prov:STEPHON THRASHER RESIDENT 06/05/25 Ciprofloxacin Hcl (Ciprofloxacin Hcl) 500 Mg Tab, 1 TAB PO BID for 7 Days, #14 TAB Prov:RACHELLE THRASHERHIRA RESIDENT 06/05/25 Reported Medications Aspirin (Aspirin Low Dose) 81 Mg Chw, 81 MG PO DAILY, TAB.CHEW 07/31/24 Atorvastatin Calcium (Lipitor) 20 Mg Tab, 20 MG PO DAILY, TAB 07/31/24 Losartan Potassium (Losartan Potassium) 100 Mg Tab, 100 MG PO DAILY, TAB 07/31/24 Hydrochlorothiazide W/Triamter (Triamterene/Hydrochloroth) 1 Cap Cap, 1 CAP PO DAILY, CAP 07/31/24 Discontinued Reported Medications Potassium Chloride (Potassium Chloride ER) 10 Meq Tab, 10 MEQ PO DAILY, TAB 07/31/24 Current Medications Current Medications Medications (Trade) Dose Ordered Sig/Robert Route PRN Reason Start Time Stop Time Status Last Admin Ceftriaxone Sodium 50 ml @ 100 mls/hr DAILY@09 IV 06/05/25 09:00 06/05/25 10:51 Metoprolol Tartrate (Lopressor Tablet) 25 mg BID PO 06/04/25 22:00 06/04/25 22:54 DC Atorvastatin Calcium (Lipitor) 20 mg HS PO 06/04/25 22:00 06/04/25 21:20 Losartan Potassium (Cozaar Tablet) 100 mg DAILY PO 06/05/25 10:00 06/05/25 10:00 Cyanocobalamin (Vitamin B-12) 500 mcg DAILY PO 06/06/25 10:00 Review of Systems Constitutional: No: Fever, Chills, Sweats, Weakness, Malaise, Other Eyes: No: Pain, Vision change, Conjunctivae inflammation, Eyelid inflammation, Other, Redness ENT: No: Ear pain, Ear discharge, Nose pain, Nose discharge, Nose congestion, Mouth pain, Mouth swelling, Throat pain, Throat swelling, Other Respiratory: No: Cough, Dry, Shortness of breath, SOB with exertion, Wheezing, Hemoptysis, Pleuritic Pain, Sputum, Wheezing, Other Cardiovascular: ; No: Chest Pain Palpitations, Orthopnea, Paroxysmal Noc. Dyspnea, Edema, Lt Headedness, Other Gastrointestinal: No: Nausea, Vomiting, Abdominal Pain, Diarrhea, Constipation, Melena, Hematochezia, Other Genitourinary: No Dysuria, No Frequency, No Incontinence, No Hematuria, No Retention, No Other Musculoskeletal: neck pain; No: other, shoulder pain, arm pain, back pain, hand pain, leg pain, foot pain Skin: No: Rash, Lesions, Jaundice, Bruising, Other Neurological: Other (Dizziness, headache.); No: Weakness, Numbness, Incoordination, Change in speech, Confusion, Seizures Vital Signs Vital Signs Date Time Temp Pulse Resp B/P (MAP) Pulse Ox O2 Delivery O2 Flow Rate FiO2 06/05/25 12:44 97.6 64 16 136/75 (95) 95 97.6 06/05/25 08:00 Room Air* 0 21 Physical Exam GENERAL: Alert and oriented x 3. No acute distress. EYES: PERRL, EOMI. Anicteric. HENT: Moist mucous membranes. LUNGS: Clear to auscultation bilaterally. CARDIOVASCULAR: Regular rate and rhythm. ABDOMEN: Soft, nontender and nondistended. EXTREMITIES: No edema. NEUROLOGIC: No focal neurological deficits. SKIN: Warm, dry. Labs/Diagnostic Data Labs Test 06/05/25 06:09 06/04/25 05:27 06/04/25 05:24 06/03/25 22:33 Range/Units White Blood Count 8.1 4.4-10.8 10^3/uL Red Blood Count 4.19 4.0-5.20 10^6/uL Hemoglobin 13.6 12.2-16.2 g/dL Hematocrit 38.8 36.0-46.0 % Mean Corpuscular Volume 92.7 80.0-100.0 fL Mean Corpuscular Hemoglobin 32.4 H 28.0-32.0 pg Mean Corpuscular Hemoglobin Concent 34.9 32.0-36.0 g/dL Red Cell Distribution Width 13.3 11.8-14.3 % Platelet Count 215 140-450 10^3/uL Mean Platelet Volume 8.2 6.9-10.8 fL Neutrophils (%) (Auto) 79.9 37.0-80.0 % Lymphocytes (%) (Auto) 9.0 L 10.0-50.0 % Monocytes (%) (Auto) 8.9 0.0-12.0 % Eosinophils (%) (Auto) 1.7 0.0-7.0 % Basophils (%) (Auto) 0.5 0.0-2.0 % Neutrophils # (Auto) 6.5 1.6-8.6 10 ^3/uL Lymphocytes # (Auto) 0.7 0.4-5.4 10 ^3/uL Monocytes # (Auto) 0.7 0-1.3 10 ^3/uL Eosinophils # (Auto) 0.1 0-0.8 10 ^3/uL Basophils # (Auto) 0 0-0.2 10 ^3/uL Nucleated Red Blood Cells 0.0 % Sodium Level 131 #L 136-145 mmol/L Potassium Level 3.8 3.5-5.1 mmol/L Chloride Level 97 L 98-107 mmol/L Carbon Dioxide Level 24 20-31 mmol/L Anion Gap 10 5-15 Blood Urea Nitrogen 17 9-23 mg/dL Creatinine 0.79 0.550-1.02 mg/dL Glomerular Filtration Rate Calc 74 >90 mL/min BUN/Creatinine Ratio 21.5 H 10.0-20.0 Serum Glucose 89 74-106 mg/dL Calcium Level 8.8 8.7-10.4 mg/dL Total Bilirubin 0.5 0.2-1.0 mg/dL Aspartate Amino Transferase (AST) 15 13-40 U/L Alanine Aminotransferase (ALT) 12 7-40 U/L Alkaline Phosphatase 121 H 46-116 U/L Total Protein 6.5 5.7-8.2 g/dL Albumin 3.9 3.2-4.8 g/dL Vitamin B12 Level 185 L 211-911 pg/mL Vitamin D 25-Hydroxy 27.2 L 30.0-100 ng/mL Ammonia < 10 L 11-32 umol/L Test 06/03/25 22:19 06/03/25 21:15 06/03/25 17:17 Range/Units Influenza Type A Antigen Negative Negative Influenza Type B Antigen Negative Negative SARS-CoV-2 Antigen (Rapid) Negative NEGATIVE Urine Color Colorless Yellow Urine Clarity Turbid H Clear Urine pH 6.0 5.0-9.0 Urine Specific [place] 1.018 1.001-1.035 Urine Protein Negative Negative Urine Ketones Negative Negative Urine Blood 1+ H Negative /uL Urine Nitrite 2+ H Negative Urine Bilirubin Negative Negative Urine Urobilinogen Normal Negative mg/dL Urine Leukocyte Esterase 3+ Negative /uL Urine RBC 8 0 - 4 /hpf Urine WBC Clumps Present None Seen /hpf Urine Microscopic WBC 289 H 0-5 /HPF Urine Squamous Epithelial Cells Mod <5 /hpf Urine Bacteria Many H None Seen /hpf Urine Glucose Normal Normal mg/dL Urine Opiates Screen Neg NEGATIVE Urine Fentanyl Screen Neg NEGATIVE Urine Barbiturates Screen Neg NEGATIVE Urine Phencyclidine Screen Neg NEGATIVE Urine Amphetamines Screen Neg NEGATIVE Urine Benzodiazepines Screen Neg NEGATIVE Urine Cocaine Screen Neg NEGATIVE Urine Cannabinoids Screen Neg NEGATIVE Magnesium Level 1.9 1.6-2.6 mg/dL Direct Bilirubin 0.1 <0.3 mg/dL Troponin I High Sensitivity 7 </=34 ng/L Thyroid Stimulating Hormone (TSH) 1.54 0.55-4.78 uIU/mL Microbiology Date/Time Source Procedure Growth Status 06/04/25 04:10 Voided Urine Urine Culture - Preliminary Resulted Assessment Suspected arrhythmia. Suspected stroke versus encephalopathy. Acute cystitis with hematuria. HTN. Plan/Recommendation I agree with your ongoing assessment and care of plan. Patient has been seen by Mart Jay NP on my behalf, him and I discussed the plan with the patient. No significant arrhythmias noted on telemetry review. Follow up echo, if no significant abnormalities noted patient is stable from Cardiology standpoint for DC. Patient to continue with outpatient event monitoring, ppm interrogation. Continue IV antibiotics. Additional plan as per the hospital course. Plan discussed with: Patient NYHA Physical activity limitations: NA Date of Service: Jun 05, 2025 Billing Provider: ARMANDO YUN MD Cardiology Common Codes: [id number] INP/OBS CARE (High), [id number] CARE 30-74 MIN ARMANDO YUN MD Jun 05, 2025 15:00
[2025-06-06] MEDS ORDERED: CYANOCOBALAMIN 500 MCG TAB PO SCH (10:00)
== END 2025-06-05 18:05 | disposition home or self-care (01) | DRG 689 ==
LOC: ER 11:53 → OVERFLOW 20:50 → TELE-WESTW 23:45
PROVIDERS: ADMIT Internal Medicine; ATTEND Internal Medicine
PROC: 4B02XSZ Measurement of Cardiac Pacemaker, External Approach (ICD-10-PCS; principal; 2025-06-05)
DX: N30.01 Acute cystitis with hematuria (principal); G93.41 Metabolic encephalopathy; I11.9 Hypertensive heart disease without heart failure; I49.5 Sick sinus syndrome; E78.5 Hyperlipidemia, unspecified; Z96.641 Presence of right artificial hip joint; Z20.822 Contact with and (suspected) exposure to COVID-19; R91.1 Solitary pulmonary nodule; K44.9 Diaphragmatic hernia without obstruction or gangrene; Z82.49 Family history of ischemic heart disease and other diseases of the circulatory system; Z95.0 Presence of cardiac pacemaker; Z88.5 Allergy status to narcotic agent; Z88.2 Allergy status to sulfonamides; Z88.7 Allergy status to serum and vaccine; Z79.899 Other long term (current) drug therapy
CPT/HCPCS: 36415; 70450; 71045; 71250; 73060; 80048; 80053; 80076; 80307; 81001; 82140; 82306; 82607; 83735; 84443; 84484; 85025; 87086; 87426; 87804; 93005; 93306; 93886; G0378